=== PATIENT | female | born 1965 | race African-American/Black ===

== ENCOUNTER 2016-08-01 09:38 | Emergency (ER) | payer MEDICARE, OTHER ==
[~2016-08-01] VITALS: Ht 154.9 cm; Wt 140.0 kg
[~2016-08-01 09:38] MED LIST: 1-ME1LIQ PO; ATEN-102 PO; BACT800T5 PO; CLIN1CAP5 PO; DYAZ PO; GABA100C4 PO; GLUCOMTESTSTRIPS XX; GLUCTAB PO; GLUCTES12; LEVO.025 PO; METF500T PO; PERC5TAB12 PO; RANI150 PO; RANI150T PO; TRAM50TA PO
[2016-08-01 09:47] VITALS: BP 166/81; PULSE 88; RESP 16; TEMP 98.4; O2SAT 94
[2016-08-01] MEDS ORDERED: METF500T PO (09:55)
[2016-08-01] MEDS ORDERED: AMLO10TA2 PO (09:55)
[2016-08-01] MEDS ORDERED: TRAM50TA PO (09:55)
[2016-08-01] MEDS ORDERED: ATEN50TA PO (09:55)
[2016-08-01] MEDS ORDERED: GABA100C4 PO (09:55)
[2016-08-01] MEDS ORDERED: SODIUM CHLOR 0.9% 1000 ML INJ 1,000 ML IV SCH (09:59)
[2016-08-01] MEDS ORDERED: ONDANSETRON HCL 4 MG/2 ML VIAL IVP ONE (10:00)
[2016-08-01] MEDS ORDERED: SODIUM CHLORIDE 0.9% FLUSH 5 ML FLUSH IVF PRN (10:00)
[2016-08-01] MEDS ORDERED: MORPHINE SULFATE 4 MG/ML INJ IV PUSH ONE (10:00)
--- NOTE | 2016-08-01 10:08 | PD ---
HPI Chief Complaint: Hypertension Time Seen by Provider: 09:42 Travel History International Travel<30 days: No Contact w/Intl Traveler<30days: No Traveled to known affect area: No History of Present Illness HPI The patient is a 50-year-old [place] female who presents to the emergency department via EMS for "not feeling well". The patient has a one- week history of nausea, vomiting, and diarrhea. The patient describes the diarrhea as loose, watery, multiple times throughout the day. She also complains of some lower abdominal pain, right greater than the left over the last several days which is intermittent. The patient has been able to tolerate oral intake intermittently, but continues to complain of nausea. She also complains of mild dizziness with standing upright. The patient called EMS and they noted her blood pressure was elevated. The patient states her primary physician is Dr. Lo of the [address] [place] [address]. The patient does note a previous history of hysterectomy and tumor removal and was seen Dr. Conde. She has an appointment with another oncologist in the future, however, cannot recall the name. The patient denies any fever, but has had some intermittent chills and sweats. PFSH Past Medical History Arthritis: Yes Asthma: No Autoimmune Disease: Yes (LUPUS) Blood Disorders: No Heart Rhythm Problems: No Cancer: No Cardiac Catheterization: No Cardiovascular Problems: Yes (CHF) High Cholesterol: No Chemotherapy: No Chest Pain: No Congestive Heart Failure: Yes COPD: No Diabetes: Yes Patient Takes Glucophage: No Diminished Hearing: No Endocrine: No Gastrointestinal Disorders: Yes GERD: Yes Genitourinary: No Hepatitis: No Hiatal Hernia: No Hypertension: Yes Immune Disorder: No Kidney Stones: No Musculoskeletal: Yes ("LOWER BACK DISCS DETERIORATED") Neurologic: No Psychiatric: No Respiratory: Yes Myocardial Infarction: No Radiation Therapy: No Renal Failure: No Sickle Cell Disease: No Sleep Apnea: No Thyroid Disease: Yes (HYPOTHYDRIOD) Ulcer: Yes ?: Not Menopausal: Yes : 0 Para: 0 Miscarriage: 0 : 0 Past Surgical History Abdominal Surgery: Yes (REMOVAL OF TUMOR IN THE STOMACH) AICD: No Appendectomy: Yes Arteriovenous Shunt: No Cardiac Surgery: No Ear Surgery: No Endocrine Surgery: No Eye Surgery: No Genitourinary Surgery: No Gynecologic Surgery: No Hysterectomy: Yes Insulin Pump: No Joint Replacement: No Oral Surgery: No Pacemaker: No Thoracic Surgery: No Other Surgery: Yes Social History Alcohol Use: No Tobacco Use: Yes (<1/2 ppd) Substance Use: No Allergies-Medications (Allergen,Severity, Reaction): Coded Allergies: Aspirin (Verified Allergy, Severe, H/O LOW PLATELET COUNT, 08/01/16) Nonsteroidal Anti-Inflammatory Agts (Verified Allergy, Severe, 08/01/16) low plt. 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) Lisinopril (Verified Adverse Reaction, Unknown, Swelling, 08/01/16) ANGIOEDEMA Reported Meds & Prescriptions Reported Meds & Active Scripts Active Metformin (Metformin HCl) 500 Mg Tab 500 Mg PO BIDPC With meals Ranitidine (Ranitidine HCl) 150 Mg Tab 150 Mg PO DAILY Glucocom Test Strips (Blood Glucose Test Strips) 1 [place] 1 Box .ROUTE BID Check Blood sugar twice daily Review of Systems Except as stated in HPI: all other systems reviewed are Neg General / Constitutional: Positive: Fever (subjective), Chills HENT: Positive: Lightheadedness Cardiovascular: No: Chest Pain or Discomfort Respiratory: No: Shortness of Breath Gastrointestinal: Positive: Nausea, Vomiting, Diarrhea, Abdominal Pain Genitourinary: No: Dysuria, Decreased Urinary Output Musculoskeletal: Positive: Weakness Neurologic: Positive: Dizziness Physical Exam Narrative GENERAL: Awake, alert, 50-year-old female who appears her stated age and is in no acute respiratory distress. SKIN: Warm and dry. HEAD: Atraumatic. Normocephalic. EYES: Mild injection bilateral. ENT: No nasal bleeding or discharge. Mucous membranes pink and moist. NECK: Trachea midline. No JVD. CARDIOVASCULAR: Regular rate and rhythm. No murmur appreciated. RESPIRATORY: No accessory muscle use. Clear to auscultation. Breath sounds equal bilaterally. GASTROINTESTINAL: Abdomen soft, obese, tender to palpation right lower quadrant. No rebound tenderness. MUSCULOSKELETAL: No obvious deformities. No clubbing. No cyanosis. No edema. NEUROLOGICAL: Awake and alert. No obvious cranial nerve deficits. Motor grossly within normal limits. Normal speech. PSYCHIATRIC: Appropriate mood and affect; insight and judgment normal. Data Data Last Documented VS Vital Signs Date Time Temp Pulse Resp B/P Pulse Ox O2 Delivery O2 Flow Rate FiO2 08/01/16 10:29 96 Room Air 08/01/16 09:47 98.4 88 16 166/81 Orders Complete Blood Count With Diff (08/01/16 09:59) Comprehensive Metabolic Panel (08/01/16 09:59) Lipase (08/01/16 09:59) Lactic Acid (08/01/16 09:59) Urinalysis - C+S If Indicated (08/01/16 09:59) Ct Abd/Pel W/O Iv Contrast (08/01/16 09:59) Iv Access Insert/Monitor (08/01/16 09:59) Ecg Monitoring (08/01/16 09:59) Oximetry (08/01/16 09:59) Morphine Inj (Morphine Inj) (08/01/16 10:00) Ondansetron Inj (Zofran Inj) (08/01/16 10:00) Sodium Chlor 0.9% 1000 Ml Inj (Ns 1000 M (08/01/16 09:59) Sodium Chloride 0.9% Flush (Ns Flush) (08/01/16 10:00) Acetaminophen (Tylenol) (08/01/16 11:30) Labs Laboratory Tests Test 08/01/16 08/01/16 10:21 10:25 Urine Color LIGHT-YELLOW Urine Turbidity CLEAR Urine pH 5.5 Urine Specific [place] 1.008 Urine Protein NEG mg/dL Urine Glucose (UA) NEG mg/dL Urine Ketones NEG mg/dL Urine Occult Blood NEG Urine Nitrite NEG Urine Bilirubin NEG Urine Urobilinogen LESS THAN 2.0 MG/DL Urine Leukocyte Esterase NEG Urine RBC LESS THAN 1 /hpf Urine WBC LESS THAN 1 /hpf Urine Squamous Epithelial 1 /hpf Cells Microscopic Urinalysis Comment CULT NOT INDICATED White Blood Count 9.5 TH/MM3 Red Blood Count 4.33 MIL/MM3 Hemoglobin 12.6 GM/DL Hematocrit 38.8 % Mean Corpuscular Volume 89.6 FL Mean Corpuscular Hemoglobin 29.0 PG Mean Corpuscular Hemoglobin 32.4 % Concent Red Cell Distribution Width 15.9 % Platelet Count 86 TH/MM3 Mean Platelet Volume 12.6 FL Neutrophils (%) (Auto) 56.4 % Lymphocytes (%) (Auto) 35.2 % Monocytes (%) (Auto) 6.6 % Eosinophils (%) (Auto) 0.8 % Basophils (%) (Auto) 1.0 % Neutrophils # (Auto) 5.3 TH/MM3 Lymphocytes # (Auto) 3.3 TH/MM3 Monocytes # (Auto) 0.6 TH/MM3 Eosinophils # (Auto) 0.1 TH/MM3 Basophils # (Auto) 0.1 TH/MM3 CBC Comment AUTO DIFF Differential Comment AUTO DIFF CONFIRMED Platelet Estimate LOW Platelet Morphology Comment ENLARGED Sodium Level 144 MEQ/L Potassium Level 3.8 MEQ/L Chloride Level 107 MEQ/L Carbon Dioxide Level 29.4 MEQ/L Anion Gap 8 MEQ/L Blood Urea Nitrogen 9 MG/DL Creatinine 0.51 MG/DL Estimat Glomerular Filtration 153 ML/MIN Rate Random Glucose 83 MG/DL Lactic Acid Level 0.8 mmol/L Calcium Level 9.2 MG/DL Total Bilirubin 0.3 MG/DL Aspartate Amino Transf 15 U/L (AST/SGOT) Alanine Aminotransferase 26 U/L (ALT/SGPT) Alkaline Phosphatase 79 U/L Total Protein 8.0 GM/DL Albumin 3.8 GM/DL Lipase 138 U/L [facility] Medical Decision Making Medical Screen Exam Complete: Yes Emergency Medical Condition: Yes Medical Record Reviewed: Yes Interpretation(s) Laboratory Tests Test 08/01/16 08/01/16 10:21 10:25 Urine Color LIGHT-YELLOW Urine Turbidity CLEAR Urine pH 5.5 Urine Specific [place] 1.008 Urine Protein NEG mg/dL Urine Glucose (UA) NEG mg/dL Urine Ketones NEG mg/dL Urine Occult Blood NEG Urine Nitrite NEG Urine Bilirubin NEG Urine Urobilinogen LESS THAN 2.0 MG/DL Urine Leukocyte Esterase NEG Urine RBC LESS THAN 1 /hpf Urine WBC LESS THAN 1 /hpf Urine Squamous Epithelial 1 /hpf Cells Microscopic Urinalysis Comment CULT NOT INDICATED White Blood Count 9.5 TH/MM3 Red Blood Count 4.33 MIL/MM3 Hemoglobin 12.6 GM/DL Hematocrit 38.8 % Mean Corpuscular Volume 89.6 FL Mean Corpuscular Hemoglobin 29.0 PG Mean Corpuscular Hemoglobin 32.4 % Concent Red Cell Distribution Width 15.9 % Platelet Count 86 TH/MM3 Mean Platelet Volume 12.6 FL Neutrophils (%) (Auto) 56.4 % Lymphocytes (%) (Auto) 35.2 % Monocytes (%) (Auto) 6.6 % Eosinophils (%) (Auto) 0.8 % Basophils (%) (Auto) 1.0 % Neutrophils # (Auto) 5.3 TH/MM3 Lymphocytes # (Auto) 3.3 TH/MM3 Monocytes # (Auto) 0.6 TH/MM3 Eosinophils # (Auto) 0.1 TH/MM3 Basophils # (Auto) 0.1 TH/MM3 CBC Comment AUTO DIFF Sodium Level 144 MEQ/L Potassium Level 3.8 MEQ/L Chloride Level 107 MEQ/L Carbon Dioxide Level 29.4 MEQ/L Anion Gap 8 MEQ/L Blood Urea Nitrogen 9 MG/DL Creatinine 0.51 MG/DL Estimat Glomerular Filtration 153 ML/MIN Rate Random Glucose 83 MG/DL Lactic Acid Level 0.8 mmol/L Calcium Level 9.2 MG/DL Total Bilirubin 0.3 MG/DL Aspartate Amino Transf 15 U/L (AST/SGOT) Alanine Aminotransferase 26 U/L (ALT/SGPT) Alkaline Phosphatase 79 U/L Total Protein 8.0 GM/DL Albumin 3.8 GM/DL Lipase 138 U/L CT of the abdomen and pelvis reveals no definite acute abnormality seen. Scattered colonic diverticula in the sigmoid region without inflammatory change. Differential Diagnosis Differential diagnosis includes gastroenteritis, enteritis, colitis, diverticulitis, clostridium difficile, viral syndrome, influenza, dehydration. Narrative Course IV was established, labs are drawn and sent, and the patient was placed on cardiac telemetry monitoring and continuous pulse oximetry monitoring. The patient was administered morphine, Zofran, and IV fluids. CT of the abdomen and pelvis was ordered. The patient's labs are unremarkable. Lactic acid is normal. The patient refused morphine, is allergic to nonsteroidal anti- inflammatories and aspirin, therefore, was administered Tylenol for her pain. CT of the abdomen and pelvis is unremarkable except for scattered colonic diverticula and nonobstructive 4 mm right renal stone. The patient will be discharged home on antiemetics and is advised [id number] antidiarrheals as needed. The patient will be provided a copy of her labs and steady discharge. She is advised to follow-up with her primary physician. Diagnosis Primary Impression: Gastroenteritis Patient Instructions: General Instructions Additional Instructions: Please provide a patient a copy of her CT results and lab results at discharge. Medications as directed. [id number] Imodium as needed. Follow-up with her primary physician. Return if symptoms worsen or progress. Med/Other Pt SpecificInfo: Prescription(s) given Scripts Ondansetron Odt (Zofran Odt)4 Mg Tab4 Mg SL Q6HR PRN (Nausea/Vomiting) #10 TAB Ref 0 Prov:Tonio Simon MD 08/01/16 Hydrocodone-Acetaminophen (Camp)5-325 mg Tab1 Tab PO Q6H PRN (PAIN) #15 TAB Ref 0 Prov:Tonio Simon MD 08/01/16 Disposition: 01 DISCHARGE HOME Condition: Stable Tonio Simon MD Aug 01, 2016 10:07
[2016-08-01 10:29] VITALS: O2SAT 96
[2016-08-01 10:47] LABS: BLOOD, URINE NEG (NEG); GLUCOSE,URINE NEG (NEG); KETONE, URINE NEG (NEG); NITRITE,URINE NEG (NEG); PH, URINE 5.5 (5.0-8.5); SQUAMOUS EPITHELIAL CELL URINE 1 /hpf (0-5); URINE COLOR LIGHT-YELLOW (YELLW/STRAW)
[2016-08-01 10:48] LABS: COMMENT (UR) CULT NOT INDICATED; CULTURE IF INDICATED CULT NOT INDICATED
[2016-08-01 10:50] LABS: AUTOMATED NEUTROPHIL # 5.3 TH/MM3 (1.8-7.7); BASOPHIL # 0.1 TH/MM3 (0-0.2); EOSINOPHIL # 0.1 TH/MM3 (0-0.4); EOSINOPHIL % 0.8 % (0.0-4.0); HEMATOCRIT 38.8 % (35.0-46.0); LYMPH % 35.2 % (9.0-44.0); LYMPHOCYTE # 3.3 TH/MM3 (1.0-4.8); MEAN CELL VOLUME 89.6 FL (80.0-100.0); MEAN CORPUSCULAR HGB CONC 32.4 % (32.0-36.0); MONO % 6.6 % (0.0-8.0); NEUT % 56.4 % (16.0-70.0); PLATELET COUNT 86 TH/MM3 (150-450); RED BLOOD COUNT 4.33 MIL/MM3 (4.00-5.30); RED CELL DISTRIBUTION WIDTH 15.9 % (11.6-17.2); WHITE BLOOD COUNT 9.5 TH/MM3 (4.0-11.0)
[2016-08-01 11:03] LABS: ANION GAP 8 MEQ/L (5-15); AST (GOT) 15 U/L (15-37); BICARBONATE 29.4 MEQ/L (21.0-32.0); BLOOD UREA NITROGEN 9 MG/DL (7-18); CHLORIDE 107 MEQ/L (98-107); GLOMERULAR FILTRATION RATE 153 ML/MIN (>89); POTASSIUM 3.8 MEQ/L (3.5-5.1); SODIUM (NA) 144 MEQ/L (136-145)
[2016-08-01 11:06] LABS: ALKALINE PHOSPHATASE 79 U/L (45-117); ALT (GPT) 26 U/L (10-53); TOTAL BILIRUBIN ADULT 0.3 MG/DL (0.2-1.0)
[2016-08-01 11:12] LABS: HEMO FLAGS AUTO DIFF
[2016-08-01 11:15] VITALS: BP 143/90; PULSE 84; RESP 16; O2SAT 96
[2016-08-01] MEDS ORDERED: ACETAMINOPHEN 325 MG TAB PO ONE (11:30)
--- NOTE | 2016-08-01 11:51 | RADRPT ---
EXAM DATE/TIME: 08/01/2016 11:02 [facility] COMPARISON: No previous studies available for comparison. INDICATIONS : Lower abdominal pain ORAL CONTRAST: No oral contrast ingested. RADIATION DOSE: 27.16 CTDIvol (mGy) MEDICAL HISTORY : Cardiovascular disease. Hypertension. Lupus. SURGICAL HISTORY : Hysterectomy. Appendectomy. ENCOUNTER: Initial ACUITY: 1 day PAIN SCALE: 5/10 LOCATION: lower quadrant TECHNIQUE: Volumetric scanning of the abdomen and pelvis was performed. Using automated exposure control and ad justment of the mA and/or kV according to patient size, radiation dose was kept as low as reasonably achievable to obtain optimal diagnostic quality images. FINDINGS: The liver appears prominent. No focal hepatic lesions are seen. The spleen, pancreas and adrenal gl ands are normal. There is a 4 mm non-obstructing right renal stone. No hydronephrosis is seen on either side . There is some scattered colonic diverticula in the sigmoid region without significant inflammatory change. Si gnificantly dilated bowel is not seen. The patient appears to be status post hysterectomy. There is a focal are a of increased density seen at the superior aspect of the vagina measuring 0.8 cm likely related to a calcification in this region. Significant areas of adenopathy are not appreciated. The abdominal wall appears grossly intact. The patient has post-surgical change in the midline in the superficial anterior abdominal wall fat. The lung bases a re clear. There is spurring and degenerative changes seen in the lumbar spine. CONCLUSION: 1. No definite acute abnormality seen. 2. Scattered colonic diverticula in the sigmoid region without inflammatory change. 3. Non-obstructing 4 mm right renal stone. Yash Grey MD on August 01, 2016 at 11:30 Board Certified Radiologist. This report was verified electronically.
[2016-08-01 11:56] LABS: PLATELET ESTIMATE SMEAR LOW (NORMAL); PLATELET MORPHOLOGY ENLARGED (NORMAL); SCAN/DIFF AUTO DIFF CONFIRMED
[2016-08-01] MEDS ORDERED: NORC5TAB PO (12:08)
[2016-08-01] MEDS ORDERED: ZOFR4TAB3 SL (12:08)
== END 2016-08-01 12:59 | disposition home or self-care (01) ==
LOC: NEPE 09:38
DX: K52.9 Noninfective gastroenteritis and colitis, unspecified (principal); M32.9 Systemic lupus erythematosus, unspecified; I50.9 Heart failure, unspecified; I10 Essential (primary) hypertension; E07.9 Disorder of thyroid, unspecified; F17.210 Nicotine dependence, cigarettes, uncomplicated
CPT/HCPCS: 74176; 80053; 81001; 83605; 83690; 85025; 96361; 96374; 99284; J2405; J7030

== ENCOUNTER 2016-08-24 07:43 | Day surgery (SDC) | payer MEDICARE, OTHER ==
[~2016-08-24] VITALS: Ht 154.9 cm; Wt 142.7 kg
[~2016-08-24 07:43] MED LIST changes: -1-ME1LIQ PO; +AMLO10TA2 PO; -ATEN-102 PO; +ATEN50TA PO; -BACT800T5 PO; -CLIN1CAP5 PO; -DYAZ PO; -GLUCOMTESTSTRIPS XX; -GLUCTAB PO; -LEVO.025 PO; +NORC5TAB PO; -PERC5TAB12 PO; -RANI150 PO; +ZOFR4TAB3 SL
[2016-08-24 08:01] VITALS: BP 169/98; PULSE 79; RESP 20; TEMP 98.4; O2SAT 95
[2016-08-24] MEDS ORDERED: [UNRECOGNIZED DRUG - CODE] PO (08:01)
[2016-08-24] MEDS ORDERED: PRED5TAB PO (08:01)
[2016-08-24 08:37] LABS: AUTOMATED NEUTROPHIL # 5.5 TH/MM3 (1.8-7.7); BASOPHIL # 0.1 TH/MM3 (0-0.2); EOSINOPHIL # 0.1 TH/MM3 (0-0.4); EOSINOPHIL % 1.3 % (0.0-4.0); HEMATOCRIT 39.3 % (35.0-46.0); LYMPH % 32.6 % (9.0-44.0); LYMPHOCYTE # 3.1 TH/MM3 (1.0-4.8); MEAN CELL VOLUME 89.6 FL (80.0-100.0); MEAN CORPUSCULAR HEMOGLOBIN 28.7 PG (27.0-34.0); MEAN CORPUSCULAR HGB CONC 32.1 % (32.0-36.0); NEUT % 58.1 % (16.0-70.0); PLATELET COUNT 76 TH/MM3 (150-450); RED BLOOD COUNT 4.39 MIL/MM3 (4.00-5.30); RED CELL DISTRIBUTION WIDTH 16.1 % (11.6-17.2); WHITE BLOOD COUNT 9.5 TH/MM3 (4.0-11.0)
[2016-08-24 08:40] LABS: HEMO FLAGS AUTO DIFF
[2016-08-24 08:45] LABS: APTT (PATIENT) 25.4 SEC (24.3-30.1); PROTHROMBIN TIME - PATIENT 11.4 SEC (9.8-11.6)
[2016-08-24] MEDS ORDERED: LIDOCAINE 1%/EPINEPHrine 1:100,000 SOLN 20 ML VIAL ONE (08:47)
[2016-08-24] MEDS ORDERED: SODIUM CHLOR 0.9% 1000 ML INJ 1,000 ML IV SCH (09:00)
[2016-08-24] MEDS ORDERED: MIDAZOLAM HCL 5 MG/5 ML VIAL ONE (09:02)
[2016-08-24] MEDS ORDERED: fentaNYL CITRATE 250 MCG/5 ML AMP ONE (09:02)
[2016-08-24 09:07] LABS: PLATELET ESTIMATE SMEAR LOW (NORMAL); PLATELET MORPHOLOGY ENLARGED (NORMAL); SCAN/DIFF AUTO DIFF CONFIRMED
[2016-08-24] MEDS ORDERED: BUPIVACAINE HCL PF 0.75% 10 ML VIAL ONE (09:38)
[2016-08-24 10:05] VITALS: BP 131/81; PULSE 75; RESP 18; TEMP 98; O2SAT 94
[2016-08-24 10:20] VITALS: BP 117/50; PULSE 75; RESP 18; O2SAT 98
--- NOTE | 2016-08-24 10:34 | RADRPT ---
EXAM DATE/TIME: 08/24/2016 09:29 [facility] COMPARISON: No previous studies available for comparison. INDICATIONS : Thrombocytopenia. SEDATION TIME: 30 minutes BIOPSY SITE: Right ilium MEDICATION(S): 1.) 3 mg midazolam (Versed) IV 2.) 150 mcg fentanyl (Sublimaze) IV DEVICE(S): 1.) 11 gauge Bone marrow biopsy needle MEDICAL HISTORY : Diabetes mellitus type 2. Hypertension. SURGICAL HISTORY : None. ENCOUNTER: Initial ACUITY: 1 day PAIN SCORE: 0/10 LOCATION: Right pelvis A total of one core specimen(s) were obtained and sent to the laboratory for pathologic evaluation. PROCEDURE: 1. CT guided bone marrow biopsy. 2. Conscious sedation with continuous EKG and oximetry monitoring. 3. EKG and oximetry remained stable throughout the procedure. Prior to the procedure informed consent was obtained. Any appropriate prior imaging studies were rev iewed. Using automated exposure control and adjustment of the mA and/or kV according to patient size , radiation dose was kept as low as reasonably achievable to obtain optimal diagnostic quality images . The site was prepped in a sterile fashion. Full sterile technique was used, including cap, mask, ber[place] rile gloves and gown and a large sterile sheet. Hand hygiene and 2% chlorhexidine and/or betadine/al cohol prep was utilized per protocol for cutaneous antisepsis. The skin and subcutaneous tissues wer e infiltrated with local anesthetic solution. With CT guidance the previously identified target was localized. Biopsy was performed using the presc ribed needle as above. Following biopsy marrow aspiration was performed with repeat puncture. Adequa te hemostasis was obtained with compression at the puncture site. Follow-up CT scan reveals no hemorrhage. Conscious sedation was performed with the prescribed dosages and duration as above in the presence of an independent trained radiology nurse to assist in the monitoring of the patient. EKG and oximetry remained stable throughout the procedure. The patient tolerated the procedure well and there were no complications. The patient was sent to Radiology Outpatient Unit in stable condition. CONCLUSION: 1. Uncomplicated CT guided bone marrow aspirate. 2. Uncomplicated CT guided bone marrow biopsy. Everardo Flores MD FACR on August 24, 2016 at 10:32 Board Certified Radiologist. This report was verified electronically.
[2016-08-24 10:50] VITALS: BP 137/71; PULSE 62; RESP 16; O2SAT 98
[2016-08-24 11:06] LABS: BONE MARROW PROCESSING COMPLETE; IRON STAIN DONE; JENNER GIEMSA STAIN DONE
[2016-08-24 11:20] VITALS: BP 144/75; PULSE 66; RESP 18; O2SAT 92
[2016-08-24 11:50] VITALS: BP 130/76; PULSE 68; RESP 18; O2SAT 93
[2016-08-24] MEDS ORDERED: ACETAMINOPHEN/HYDROcodone 325 MG/5 MG TAB PO ONE (12:00)
== END 2016-08-24 12:15 | disposition home or self-care (01) ==
LOC: HRAD 07:43 → HRIP 07:44 → HRAD 12:15
PROVIDERS: ATTEND Internal Medicine Hematology & Oncology
DX: D69.3 Immune thrombocytopenic purpura (principal); I10 Essential (primary) hypertension; E11.9 Type 2 diabetes mellitus without complications
CPT/HCPCS: 38221; 77012; 85025; 85097; 85610; 85730; 88305; 88311; 88313; 99152; C1830; G0364; J2250; J3010; J7030

== ENCOUNTER 2016-08-30 11:31 | Emergency (ER) | payer MEDICARE, OTHER ==
[~2016-08-30] VITALS: Ht 154.9 cm; Wt 140.0 kg
[~2016-08-30 11:31] MED LIST changes: +PRED5TAB PO; +[UNRECOGNIZED DRUG - CODE] PO
[2016-08-30 11:33] VITALS: BP 162/100; PULSE 90; RESP 24; TEMP 98.6; O2SAT 98
--- NOTE | 2016-08-30 11:48 | PD ---
Physical Exam Time Seen by Provider: 11:45 Narrative 50 yo female c/o tooth pain for a couple days. Denies fever, vomiting. Right lower gum swelling. Pain radiates to R ear. VSS Seen in triage, awaiting bed placement. Data Data Last Documented VS Vital Signs Date Time Temp Pulse Resp B/P Pulse Ox O2 Delivery O2 Flow Rate FiO2 08/30/16 11:33 98.6 90 24 162/100 98 Room Air MDM Supervised Visit with KYUNG: Ambreen Mejía Aug 30, 2016 11:48
--- NOTE | 2016-08-30 11:52 | PD ---
HPI . right lower gum cyst x 2 mts Chief Complaint: Oral / Dental Pain or Problem Time Seen by Provider: 11:52 Travel History International Travel<30 days: No Contact w/Intl Traveler<30days: No Traveled to known affect area: No History of Present Illness HPI 50-year-old female with history of hypertension, hyperlipidemia, diabetes and a two-month history of a right lower gum cyst status post biopsy with noncancerous results here with complaints of right sided ear pain and possible infection of the cyst. Patient tells me that she thinks she saw pus coming out of it this morning and thinks it is contributing to her right sided ear pain. Patient is in the process of trying to find a dentist who accepts Medicaid to have this cyst removed. She is somewhat at a standstill as she cannot find any providers locally to take her insurance. She is following with her primary care provider and was told to come to the emergency department for further evaluation. Her main issue is the right sided ear pain that she believes is stemming from the cyst. She denies any fever or chills or recent cold symptoms. She has no other complaints. PFSH Past Medical History Arthritis: Yes Asthma: No Autoimmune Disease: Yes (LUPUS) Blood Disorders: No Heart Rhythm Problems: No Cancer: No Cardiac Catheterization: No Cardiovascular Problems: Yes (htn) High Cholesterol: No Chemotherapy: No Chest Pain: No Congestive Heart Failure: Yes COPD: No Diabetes: Yes (metformin) Diminished Hearing: No Endocrine: No Gastrointestinal Disorders: Yes GERD: Yes Genitourinary: No Hepatitis: No Hiatal Hernia: No Hypertension: Yes Immune Disorder: No Kidney Stones: No Musculoskeletal: Yes ("LOWER BACK DISCS DETERIORATED") Neurologic: No Psychiatric: No Respiratory: Yes Immunizations Current: No Myocardial Infarction: No Radiation Therapy: No Renal Failure: No Sickle Cell Disease: No Sleep Apnea: No Thyroid Disease: Yes (HYPOTHYDRIOD) Ulcer: Yes Menopausal: Yes : 0 Para: 0 Miscarriage: 0 : 0 Past Surgical History Abdominal Surgery: Yes (REMOVAL OF TUMOR IN THE STOMACH, appe) AICD: No Appendectomy: Yes Arteriovenous Shunt: No Cardiac Surgery: No Ear Surgery: No Endocrine Surgery: No Eye Surgery: No Genitourinary Surgery: No Gynecologic Surgery: Yes (hysterectomy) Hysterectomy: Yes Insulin Pump: No Joint Replacement: No Oral Surgery: No Pacemaker: No Thoracic Surgery: No Other Surgery: Yes Social History Alcohol Use: No Tobacco Use: Yes (<1/2 ppd) Substance Use: No Allergies-Medications (Allergen,Severity, Reaction): Coded Allergies: Aspirin (Verified Allergy, Severe, H/O LOW PLATELET COUNT, 08/30/16) Nonsteroidal Anti-Inflammatory Agts (Verified Allergy, Severe, 08/30/16) low plt. 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 Zofran Odt (Ondansetron Odt) 4 Mg Tab 4 Mg SL Q6HR PRN [place] (Hydrocodone-Acetaminophen) 5-325 mg Tab 1 Tab PO Q6H PRN Ranitidine (Ranitidine HCl) 150 Mg Tab 150 Mg PO DAILY Glucocom Test Strips (Blood Glucose Test Strips) 1 [place] 1 Box .ROUTE BID Check Blood sugar twice daily Reported Promacta (Eltrombopag) 75 Mg Tab 75 Mg PO DAILY Prednisone 5 Mg Tab 5 Mg PO TID Tramadol (Tramadol HCl) 50 Mg Tab 50 Mg PO Q6H PRN Amlodipine (Amlodipine Besylate) 10 Mg Tab 10 Mg PO HS Metformin (Metformin HCl) 500 Mg Tab 500 Mg PO DAILY With a meal Gabapentin 100 Mg Cap 100 Mg PO HS Atenolol 50 Mg Tab 50 Mg PO DAILY Review of Systems Except as stated in HPI: all other systems reviewed are Neg HENT: Positive: Earache (right), Other (right gum cyst) Physical Exam Narrative GENERAL: AAO x 3, no acute distress, Well-nourished, well-developed patient. SKIN: Warm and dry. No visible rashes or bruising. HEAD: Normocephalic and atraumatic. EYES: No scleral icterus. No injection or drainage. EOM intact, PERRLA ENT: No nasal drainage noted. Mucous membranes pink. Airway patent. Right TM bulging and erythematous, loss of internal structures. right lower gum near #27 , 1.5 cm cystic structure without any drainage or erythema. NECK: Supple, trachea midline. No JVD. no lymphadenopathy. CARDIOVASCULAR: Regular rate and rhythm without murmurs, gallops, or rubs. RESPIRATORY: Breath sounds equal bilaterally. No accessory muscle use. No rhonchi or rales. GASTROINTESTINAL: Abdomen soft, non-tender, nondistended. EXTREMITIES: No cyanosis or edema. BACK: Nontender without obvious deformity. No CVA tenderness. PSYCH: AAO x 3, normal affect. Data Data Last Documented VS Vital Signs Date Time Temp Pulse Resp B/P Pulse Ox O2 Delivery O2 Flow Rate FiO2 08/30/16 11:33 98.6 90 24 162/100 98 Room Air MDM Medical Decision Making Medical Screen Exam Complete: Yes Emergency Medical Condition: Yes Medical Record Reviewed: Yes Differential Diagnosis right OM, right OE, less likely infected cyst of the mouth, Narrative Course 50-year-old female with history of hypertension, hyperlipidemia, diabetes and a two-month history of a right lower gum cyst status post biopsy with noncancerous results here with complaints of right sided ear pain and possible infection of the cyst. Patient tells me that she thinks she saw pus coming out of it this morning and thinks it is contributing to her right sided ear pain. Patient is in the process of trying to find a dentist who accepts Medicaid to have this cyst removed. She is somewhat at a standstill as she cannot find any providers locally to take her insurance. She is following with her primary care provider and was told to come to the emergency department for further evaluation. Her main issue is the right sided ear pain that she believes is stemming from the cyst. She denies any fever or chills or recent cold symptoms. She has no other complaints. Patient seen and examined. I do not appreciate any type of infection near this cystic structure in her oral cavity. However I do see that she has what appears to be right otitis media. I discussed this with her. I will go ahead and treat her with Augmentin for otitis media, which will also cover oral infections. I advised her to try to reach out to her primary care provider for assistance in finding a dentist who can take her insurance. Patient verbalized understanding of instructions, questions were answered, and thanked me for their care. I advised them if their condition worsens, please return to the nearest emergency room for further care. Diagnosis Primary Impression: ROM (right otitis media) Qualified Code: H66.91 - Right otitis media, unspecified chronicity, unspecified otitis media type Patient Instructions: General Instructions, Otitis Media (ED) Additional Instructions: Please return to emergency department if your symptoms return or worsen. Follow up with your primary care provider. Take medications as prescribed. Use ibuprofen and Tylenol as needed for pain. Try to get a dentist to remove the cyst as soon as possible. Med/Other Pt SpecificInfo: Prescription(s) given Scripts Amoxicillin-Clavulanate (Augmentin)875-125 mg Aic226 Mg PO BID #20 TAB not for use in CrCl <30 ml/min. Prov:Enoch Romero MD 08/30/16 Disposition: 01 DISCHARGE HOME Condition: Stable Annemarie Mitchell Aug 30, 2016 11:52
[2016-08-30] MEDS ORDERED: AUGM875T PO (11:58)
== END 2016-08-30 12:30 | disposition home or self-care (01) ==
LOC: NEPK 11:31
DX: H66.91 Otitis media, unspecified, right ear (principal); K09.8 Other cysts of oral region, not elsewhere classified; E11.9 Type 2 diabetes mellitus without complications; I10 Essential (primary) hypertension; E03.9 Hypothyroidism, unspecified; Z72.0 Tobacco use; Z98.890 Other specified postprocedural states; Z79.84 Long term (current) use of oral hypoglycemic drugs; Z87.39 Personal history of other diseases of the musculoskeletal system and connective tissue; Z86.2 Personal history of diseases of the blood and blood-forming organs and certain disorders involving the immune mechanism; Z86.79 Personal history of other diseases of the circulatory system; Z87.19 Personal history of other diseases of the digestive system; Z87.09 Personal history of other diseases of the respiratory system; D69.3 Immune thrombocytopenic purpura
CPT/HCPCS: 99282

== ENCOUNTER 2017-02-15 15:56 | Emergency (ER) | payer MEDICARE, OTHER ==
[~2017-02-15] VITALS: Ht 154.9 cm; Wt 146.0 kg
[~2017-02-15 15:56] MED LIST changes: +AUGM875T PO; -GABA100C4 PO; -NORC5TAB PO
[2017-02-15 16:01] VITALS: BP 170/79; PULSE 81; RESP 16; TEMP 99.2; O2SAT 95
[2017-02-15] MEDS ORDERED: PERI0.126 SWISH-SPIT (16:26)
[2017-02-15] MEDS ORDERED: PENI500T PO (16:26)
--- NOTE | 2017-02-15 16:30 | PD ---
HPI Chief Complaint: Oral / Dental Pain or Problem Time Seen by Provider: 16:22 Travel History International Travel<30 days: No Contact w/Intl Traveler<30days: No Traveled to known affect area: No History of Present Illness HPI This is a 50-year-old female who presents for evaluation of a gingival lesion. She has had for over one year. She reports over the past week the lesion has become larger and more painful and for this reason she has presented here for evaluation. She reports that she has noted some pus emanating from the lesion. She reports that she has seen her primary care physician in the past but this issue, she had a biopsy of the lesion performed on December 07, 2015 which revealed that it was a noncancerous lesion. She was referred to an oral surgeon to have it removed however because of her history of thrombocytopenia this has been delayed. She has no other complaints at this time. PFSH Past Medical History Arthritis: Yes Asthma: No Autoimmune Disease: Yes (Lupus ) Blood Disorders: No Heart Rhythm Problems: No Cancer: No Cardiac Catheterization: No Cardiovascular Problems: Yes (CHF) High Cholesterol: No Chemotherapy: No Chest Pain: No Congestive Heart Failure: Yes COPD: No Diabetes: Yes (metformin) Patient Takes Glucophage: No Diminished Hearing: No Endocrine: No Gastrointestinal Disorders: Yes GERD: Yes Genitourinary: No Hepatitis: No Hiatal Hernia: No Hypertension: Yes Immune Disorder: No Kidney Stones: No Musculoskeletal: Yes ("LOWER BACK DISCS DETERIORATED") Neurologic: No Psychiatric: No Respiratory: Yes Immunizations Current: No Myocardial Infarction: No Radiation Therapy: No Renal Failure: No Sickle Cell Disease: No Sleep Apnea: No Thyroid Disease: Yes (HYPOTHYDRIOD) Ulcer: Yes ?: Not Menopausal: Yes : 0 Para: 0 Miscarriage: 0 : 0 Past Surgical History Abdominal Surgery: Yes (REMOVAL OF TUMOR IN THE STOMACH, appe) AICD: No Appendectomy: Yes Arteriovenous Shunt: No Cardiac Surgery: No Ear Surgery: No Endocrine Surgery: No Eye Surgery: No Genitourinary Surgery: No Gynecologic Surgery: Yes (hysterectomy) Hysterectomy: Yes Insulin Pump: No Joint Replacement: No Oral Surgery: No Pacemaker: No Thoracic Surgery: No Other Surgery: Yes Social History Alcohol Use: No Tobacco Use: Yes (1 pack/wk) Substance Use: No Allergies-Medications (Allergen,Severity, Reaction): Coded Allergies: aspirin (Unverified Allergy, Severe, H/O LOW PLATELET COUNT, 02/15/17) diclofenac (Unverified Allergy, Severe, 02/15/17) low plt. etodolac (Unverified Allergy, Severe, 02/15/17) low plt. flurbiprofen (Unverified Allergy, Severe, 02/15/17) low plt. ibuprofen (Unverified Allergy, Severe, 02/15/17) low plt. indomethacin (Unverified Allergy, Severe, 02/15/17) low plt. ketoprofen (Unverified Allergy, Severe, 02/15/17) low plt. ketorolac (Unverified Allergy, Severe, 02/15/17) low plt. naproxen (Unverified Allergy, Severe, 02/15/17) low plt. oxaprozin (Unverified Allergy, Severe, 02/15/17) low plt. 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) lisinopril (Unverified Adverse Reaction, Unknown, Swelling, 02/15/17) ANGIOEDEMA Reported Meds & Prescriptions Reported Meds & Active Scripts Active Peridex Liq (Chlorhexidine Gluconate (Mouth) Liq) 0.12% Soln 15 Ml SWISH-SPIT BID Penicillin V Potassium 500 Mg Tab 500 Mg PO Q8H 10 Days Ranitidine (Ranitidine HCl) 150 Mg Tab 150 Mg PO DAILY Glucocom Test Strips (Blood Glucose Test Strips) 1 [place] 1 Box .ROUTE BID Check Blood sugar twice daily Reported Promacta (Eltrombopag) 75 Mg Tab 75 Mg PO DAILY Prednisone 5 Mg Tab 5 Mg PO TID Amlodipine (Amlodipine Besylate) 10 Mg Tab 10 Mg PO HS Metformin (Metformin HCl) 500 Mg Tab 500 Mg PO DAILY With a meal Atenolol 50 Mg Tab 50 Mg PO DAILY Review of Systems Except as stated in HPI: all other systems reviewed are Neg Physical Exam Narrative GENERAL: Well-developed well-nourished female in no acute distress SKIN: Warm and dry. HEAD: Atraumatic. Normocephalic. EYES: Pupils equal and round. No scleral icterus. No injection or drainage. ENT: No nasal bleeding or discharge. Mucous membranes pink and moist. There is a 2 cm gingival lesion in the right mandibular gum line. Mild tender. No drainage noted. Normal dentition. NECK: Trachea midline. No JVD. Data Data Last Documented VS Vital Signs Date Time Temp Pulse Resp B/P (MAP) Pulse Ox O2 Delivery O2 Flow Rate FiO2 02/15/17 16:01 99.2 81 16 170/79 (109) 95 MDM Medical Decision Making Medical Screen Exam Complete: Yes Emergency Medical Condition: Yes Medical Record Reviewed: Yes Differential Diagnosis Infected gingival lesion, abscess, oral malignancy Narrative Course This is a 51-year-old female with a chronic growth on her right mandibular gum line, negative biopsy in 2016, presents with 1 week of pain and increased swelling in the lesion, likely the patient has an infection. She'll be discharged with a short course of. Accident penicillin. Recommend follow-up with her oral surgeon for definitive removal of this lesion. Diagnosis Primary Impression: Lesion of gingiva Additional Instructions: Follow-up with your oral surgeon as scheduled. Medication as prescribed. Warm salt water gargle several times a day. Return for any emergent medical conditions. Med/Other Pt SpecificInfo: Prescription(s) given Scripts Chlorhexidine Gluconate (Mouth) Liq (Peridex Liq) 0.12% Soln 15 ML SWISH-SPIT BID, #473 ML 0 Refills Prov: Shena Robert DO 02/15/17 Penicillin V Potassium (Penicillin V Potassium) 500 Mg Tab 500 MG PO Q8H for Infection for 10 Days, #30 TAB 0 Refills Prov: Shena Robert DO 02/15/17 Disposition: 01 DISCHARGE HOME Condition: Stable Sonny Joe Feb 15, 2017 16:30
== END 2017-02-15 16:40 | disposition home or self-care (01) ==
LOC: PHEFT 15:56
DX: K13.70 Unspecified lesions of oral mucosa (principal); I11.0 Hypertensive heart disease with heart failure; I50.9 Heart failure, unspecified; E11.9 Type 2 diabetes mellitus without complications; M32.9 Systemic lupus erythematosus, unspecified; F17.210 Nicotine dependence, cigarettes, uncomplicated
CPT/HCPCS: 99284

== ENCOUNTER 2017-02-28 22:41 | Observation (INO) | payer MEDICARE, OTHER ==
[~2017-02-28] VITALS: Ht 157.5 cm; Wt 147.3 kg
[~2017-02-28 22:41] MED LIST changes: -AUGM875T PO; +PENI500T PO; +PERI0.126 SWISH-SPIT; -TRAM50TA PO; -ZOFR4TAB3 SL
[2017-02-28 22:44] VITALS: BP 178/110; PULSE 162; RESP 22; TEMP 98.7; O2SAT 94
[2017-02-28 23:12] VITALS: BP 67/34; PULSE 95; RESP 20; O2SAT 88
[2017-02-28] MEDS ORDERED: SODIUM CHLOR 0.9% 1000 ML INJ 1,000 ML IV SCH (23:12)
[2017-02-28] MEDS ORDERED: SODIUM CHLORIDE 0.9% FLUSH 10 ML FLUSH IV FLUSH PRN (23:15)
[2017-02-28] MEDS ORDERED: methylPREDNISolone SOD SUCC 125 MG/2 ML VIAL IV PUSH ONE (23:15)
[2017-02-28] MEDS ORDERED: EPINEPHrine HCL (1:1000) 1 MG/ML VIAL IM ONE (23:15)
[2017-02-28] MEDS ORDERED: diphenhydrAMINE HCL 50 MG/ML VIAL IVP ONE (23:15)
[2017-02-28 23:24] VITALS: BP 80/48; PULSE 96; RESP 20; O2SAT 95
[2017-02-28 23:29] VITALS: RESP 18; O2SAT 98
[2017-02-28 23:36] VITALS: BP 105/50; PULSE 88; RESP 18; O2SAT 98
[2017-02-28] MEDS ORDERED: SODIUM CHLOR 0.9% 1000 ML INJ 1,000 ML IV ONE (23:45)
--- NOTE | 2017-02-28 23:58 | RADRPT ---
EXAM DATE/TIME: 02/28/2017 23:42 [facility] COMPARISON: CHEST SINGLE AP, December 27, 2014, 11:54. INDICATIONS : Shortness of breath MEDICAL HISTORY : Diabetes mellitus type II. SURGICAL HISTORY : None. ENCOUNTER: Initial ACUITY: 1 day PAIN SCORE: 7/10 LOCATION: Bilateral chest FINDINGS: A single view of the chest demonstrates cardiomegaly. No focal consolidation or effusion. No pneumoth orax. CONCLUSION: 1. Cardiomegaly without focal consolidation or significant effusion. Ankit Dominguez MD on February 28, 2017 at 23:56 Board Certified Radiologist. This report was verified electronically.
--- NOTE | 2017-02-28 23:58 | PD ---
HPI Chief Complaint: Allergic/Adverse Reaction Time Seen by Provider: 23:11 Travel History International Travel<30 days: No Contact w/Intl Traveler<30days: No History of Present Illness HPI 51yo F with PMH of DM, HTN, allergic reaction presents to the ED with c/o sob and generalized itching 10-15 min after taking her penicillin. States she also felt her lip swollen. Denies any chest pain, throat swelling or tongue swelling. Had some nausea. Denies any vomiting, abdominal pain. Pt was hypoxic and required up to 6 L of NC initially to saturate in the low 90s. She was also hypotensive at 71/43. Pt given epinephrine, methylprednisolone and diphenhydramine. States she has had angioedema from lisinopril before. Had taken a few days of penicillin before but never had this. PFSH Past Medical History Arthritis: Yes Asthma: No Autoimmune Disease: Yes (Lupus ) Blood Disorders: No Heart Rhythm Problems: No Cancer: No Cardiac Catheterization: No Cardiovascular Problems: Yes (CHF) High Cholesterol: No Chemotherapy: No Chest Pain: No Congestive Heart Failure: Yes COPD: No Diabetes: Yes (metformin) Patient Takes Glucophage: No Diminished Hearing: No Endocrine: No Gastrointestinal Disorders: Yes GERD: Yes Genitourinary: No Hepatitis: No Hiatal Hernia: No Hypertension: Yes Immune Disorder: No Kidney Stones: No Musculoskeletal: Yes ("LOWER BACK DISCS DETERIORATED") Neurologic: No Psychiatric: No Respiratory: Yes Immunizations Current: No Myocardial Infarction: No Radiation Therapy: No Renal Failure: No Sickle Cell Disease: No Sleep Apnea: No Thyroid Disease: Yes (HYPOTHYROID) Ulcer: Yes Tetanus Vaccination: > 5 Years Influenza Vaccination: No ?: Not Menopausal: Yes : 0 Para: 0 Miscarriage: 0 : 0 Past Surgical History Abdominal Surgery: Yes (REMOVAL OF TUMOR IN THE STOMACH, appe) AICD: No Appendectomy: Yes Arteriovenous Shunt: No Cardiac Surgery: No Ear Surgery: No Endocrine Surgery: No Eye Surgery: No Genitourinary Surgery: No Gynecologic Surgery: Yes (hysterectomy) Hysterectomy: Yes Insulin Pump: No Joint Replacement: No Oral Surgery: No Pacemaker: No Thoracic Surgery: No Other Surgery: Yes Social History Alcohol Use: No Tobacco Use: Yes (1 pack/wk) Substance Use: No Allergies-Medications (Allergen,Severity, Reaction): Coded Allergies: Penicillins (Verified Allergy, Severe, Anaphylaxis, 03/01/17) aspirin (Verified Allergy, Severe, H/O LOW PLATELET COUNT, 02/28/17) diclofenac (Verified Allergy, Severe, 02/28/17) low plt. etodolac (Verified Allergy, Severe, 02/28/17) low plt. flurbiprofen (Verified Allergy, Severe, 02/28/17) low plt. ibuprofen (Verified Allergy, Severe, 02/28/17) low plt. indomethacin (Verified Allergy, Severe, 02/28/17) low plt. ketoprofen (Verified Allergy, Severe, 02/28/17) low plt. ketorolac (Verified Allergy, Severe, 02/28/17) low plt. naproxen (Verified Allergy, Severe, 02/28/17) low plt. oxaprozin (Verified Allergy, Severe, 02/28/17) low plt. lisinopril (Verified Adverse Reaction, Unknown, Swelling, 02/28/17) ANGIOEDEMA Reported Meds & Prescriptions Reported Meds & Active Scripts Active Peridex Liq (Chlorhexidine Gluconate (Mouth) Liq) 0.12% Soln 15 Ml SWISH-SPIT BID Ranitidine (Ranitidine HCl) 150 Mg Tab 150 Mg PO DAILY Glucocom Test Strips (Blood Glucose Test Strips) 1 [place] 1 Box .ROUTE BID Check Blood sugar twice daily Reported Promacta (Eltrombopag) 75 Mg Tab 75 Mg PO DAILY Prednisone 5 Mg Tab 5 Mg PO TID Amlodipine (Amlodipine Besylate) 10 Mg Tab 10 Mg PO HS Metformin (Metformin HCl) 500 Mg Tab 500 Mg PO DAILY With a meal Atenolol 50 Mg Tab 50 Mg PO DAILY Review of Systems Except as stated in HPI: all other systems reviewed are Neg Physical Exam Narrative GENERAL: 51yo F in moderate distress. SKIN: Focused skin assessment warm/dry. HEAD: Atraumatic. Normocephalic. EYES: Pupils equal and round. No scleral icterus. No injection or drainage. ENT: Uvula midline and not swollen. NECK: Trachea midline. No JVD. CARDIOVASCULAR: Regular rate and rhythm. No murmur appreciated. RESPIRATORY: + accessory muscle use. Clear to auscultation. Breath sounds equal bilaterally. GASTROINTESTINAL: Abdomen soft, non-tender, nondistended. No rebound tenderness or guarding. MUSCULOSKELETAL: No obvious deformities. No clubbing. No cyanosis. No edema. NEUROLOGICAL: Awake and alert. No obvious cranial nerve deficits. Motor grossly within normal limits. Normal speech. PSYCHIATRIC: Appropriate mood and affect; insight and judgment normal. Data Data Last Documented VS Vital Signs Date Time Temp Pulse Resp B/P (MAP) Pulse Ox O2 Delivery O2 Flow Rate FiO2 02/28/17 23:36 88 18 105/50 (68) 98 Nasal Cannula 4.00 02/28/17 22:44 98.7 Orders Orders Ecg Monitoring (02/28/17 23:12) Iv Access Insert/Monitor (02/28/17 23:12) Oximetry (02/28/17 23:12) Diphenhydramine Inj (Benadryl Inj) (02/28/17 23:15) Methylprednisolone So Succ Inj (Solumedr (02/28/17 23:15) Sodium Chlor 0.9% 1000 Ml Inj (Ns 1000 M (02/28/17 23:12) Sodium Chloride 0.9% Flush (Ns Flush) (02/28/17 23:15) Epinephrine (1:1000) Inj (Adrenalin (1:1 (02/28/17 23:15) Sodium Chlor 0.9% 1000 Ml Inj (Ns 1000 M (02/28/17 23:45) Complete Blood Count With Diff (02/28/17 23:32) Basic Metabolic Panel (Bmp) (02/28/17 23:32) Troponin I (02/28/17 23:32) Electrocardiogram (02/28/17 ) Chest, Single Ap (02/28/17 ) Admit Order (Ed Use Only) (03/01/17 01:42) Labs Laboratory Tests Test 02/28/17 23:32 02/28/17 23:39 White Blood Count 11.3 TH/MM3 Red Blood Count 5.00 MIL/MM3 Hemoglobin 14.4 GM/DL Hematocrit 44.4 % Mean Corpuscular Volume 88.7 FL Mean Corpuscular Hemoglobin 28.7 PG Mean Corpuscular Hemoglobin Concent 32.4 % Red Cell Distribution Width 16.3 % Platelet Count 69 TH/MM3 Mean Platelet Volume 13.7 FL Neutrophils (%) (Auto) 40.2 % Lymphocytes (%) (Auto) 51.4 % Monocytes (%) (Auto) 6.4 % Eosinophils (%) (Auto) 1.7 % Basophils (%) (Auto) 0.3 % Neutrophils # (Auto) 4.6 TH/MM3 Lymphocytes # (Auto) 5.8 TH/MM3 Monocytes # (Auto) 0.7 TH/MM3 Eosinophils # (Auto) 0.2 TH/MM3 Basophils # (Auto) 0.0 TH/MM3 CBC Comment AUTO DIFF Differential Total Cells Counted 100 Neutrophils % (Manual) 44 % Lymphocytes % 49 % Monocytes % 5 % Eosinophils % 1 % Basophils % 1 % Neutrophils # (Manual) 5.0 TH/MM3 Differential Comment FINAL DIFF MANUAL Atypical Lymphocytes % Platelet Estimate LOW Platelet Morphology Comment ENLARGED Red Cell Morphology Comment NORMAL Blood Urea Nitrogen 20 MG/DL Creatinine 0.90 MG/DL Random Glucose 176 MG/DL Calcium Level 9.6 MG/DL Sodium Level 140 MEQ/L Potassium Level 3.5 MEQ/L Chloride Level 105 MEQ/L Carbon Dioxide Level 26.4 MEQ/L Anion Gap 9 MEQ/L Estimat Glomerular Filtration Rate 79 ML/MIN Troponin I 0.02 NG/ML MDM Medical Decision Making Medical Screen Exam Complete: Yes Emergency Medical Condition: Yes Differential Diagnosis Anaphylactic reaction vs. pneumonia vs. sepsis Narrative Course 51yo F with anaphylactic reaction. Pt was hypoxic and hypotensive. Pt given epinephrine, methylprednisolone and diphenhydramine. Pt has been on surveillance monitor and 2 IVs established and received 2 liters of NS IVF. Pt's blood pressure improved to 122/78. HR 89. I have been decreasing pt's oxygen and now saturating at 99% on 2L NC. Labs reviewed, WBC 11.3. BMP unremarkable. Troponin negative. CXR showed cardiomegaly. Pt has been reevaluated and feels much better. Pt states her lip is not swollen and she can breathe. She has not required another dose of epinephrine. Discussed with resident physician and accepted to their service. Critical Care Narrative Aggregate critical care time was 50 minutes. Time to perform other separately billable procedures was not included in the critical care time. My time did not include minutes spent treating any other patients simultaneously or on activities that did not directly contribute to the patient's treatment. The services I provided to this patient were to treat and/or prevent clinically significant deterioration that could result in: Respiratory collapse or . I provided critical care services requiring my management, as noted below: Chart data review, documentation time, medication orders and management, vital sign assessments/reviewing monitor data, ordering and reviewing lab tests, ordering and interpreting/reviewing x-rays and diagnostic studies, care of the patient and discussion of the patient with the admitting physicians. Diagnosis Primary Impression: Anaphylactic reaction Qualified Codes: T78.2XXA - Anaphylactic shock, unspecified, initial encounter Admitting Information Admitting Physician Requests: Observation Lisa Singh DO Feb 28, 2017 23:58
[2017-03-01] VITALS (23 sets, daily range): BP systolic 125–161; BP diastolic 68–96; PULSE 68–108; RESP 17–20; TEMP 97.7–98.7; O2SAT 95–100
[2017-03-01 00:02] LABS: AUTOMATED NEUTROPHIL # 4.6 TH/MM3 (1.8-7.7); BASOPHIL % 0.3 % (0.0-2.0); EOSINOPHIL # 0.2 TH/MM3 (0-0.4); EOSINOPHIL % 1.7 % (0.0-4.0); HEMATOCRIT 44.4 % (35.0-46.0); LYMPH % 51.4 % (9.0-44.0); LYMPHOCYTE # 5.8 TH/MM3 (1.0-4.8); MEAN CELL VOLUME 88.7 FL (80.0-100.0); MEAN CORPUSCULAR HEMOGLOBIN 28.7 PG (27.0-34.0); MEAN CORPUSCULAR HGB CONC 32.4 % (32.0-36.0); MONO % 6.4 % (0.0-8.0); NEUT % 40.2 % (16.0-70.0); PLATELET COUNT 69 TH/MM3 (150-450); RED CELL DISTRIBUTION WIDTH 16.3 % (11.6-17.2); WHITE BLOOD COUNT 11.3 TH/MM3 (4.0-11.0)
[2017-03-01 00:10] LABS: HEMO FLAGS AUTO DIFF
[2017-03-01 00:35] LABS: BICARBONATE 26.4 MEQ/L (21.0-32.0); POTASSIUM 3.5 MEQ/L (3.5-5.1)
[2017-03-01 00:39] LABS: BASOPHILS 1 % (0-2); EOSINOPHILS 1 % (0-4); PLATELET ESTIMATE SMEAR LOW (NORMAL); POLYS (SEG NEUTROPHILS) 44 % (16-70); SCAN/DIFF FINAL DIFF MANUAL; WBC DIFF SAMPLE 100
[2017-03-01 00:40] LABS: PLATELET MORPHOLOGY ENLARGED (NORMAL)
--- NOTE | 2017-03-01 02:16 | HHI.HP ---
[facility] Service Family Medicine Primary Care Physician Mathieu Lo MD Admission Diagnosis Anaphylaxis Diagnoses: International Travel<30 Days: No Contact w/Intl Traveler<30days: No History of Present Illness 51 year old female with a history of a gingival infected cyst started taking penicillin about 7 days ago. For the past two doses of the medication she noticed she was breaking out in hives and itching all over her body, and that her face would swell up. She took the medication earlier tonight and 15 minutes later she started to get face and lip swelling, hives, and itching all over her body, as well as difficulty breathing. She came to the ED for evaluation. In the ED she became hypotensive and increasingly short of breath. At one point she was on the brink of being intubated. She was given epinephrine via IM and quickly improved. She was also given Solumedrol and Benadryl in the ED. She required up to 4L via nasal cannula in the ED with lowest O2 saturation of 88 percent, but is now 100% on room air. She is currently asymptomatic and states that she feels much better after the epinephrine. She has no coughing, shortness of breath, runny nose, sore throat, no chest pain, no abdominal pain, no nausea, vomiting, diarrhea, or dysuria. She has a chronic gingival cyst that is currently infected for which she was taking the penicillin, which has been draining pus but has improved after 7 days of penicillin. Review of Systems Constitutional: DENIES: Diaphoretic episodes, Fatigue, Chills, Change in appetite Endocrine: COMPLAINS OF: Polydipsia, Polyuria, DENIES: Heat/cold intolerance Eyes: DENIES: Diplopia, Vision loss Ears, nose, mouth, throat: DENIES: Nasal discharge, Throat pain, Hoarseness, Running Nose, Odynophagia Respiratory: COMPLAINS OF: Wheezing, Shortness of breath, DENIES: Cough Cardiovascular: DENIES: Chest pain, Dyspnea on Exertion, Orthopnea Gastrointestinal: DENIES: Abdominal pain, Diarrhea, Nausea, Vomiting, Difficulty Swallowing Genitourinary: DENIES: Urinary frequency Musculoskeletal: DENIES: Joint Swelling Integumentary: COMPLAINS OF: Rash Hematologic/lymphatic: DENIES: Lymphadenopathy Immunologic/allergic: COMPLAINS OF: Urticaria Neurologic: DENIES: Seizures Psychiatric: DENIES: Anxiety, Confusion, Depression Past Family Social History Past Medical History Diabetes Lupus: gets arthritis, rashes, not taking anything for it Low platelets: ITP Hypertension Congestive heart failure Past Surgical History Appendectomy Hysterectomy: fibroids Reported Medications Reported Meds & Active Scripts Active Peridex Liq (Chlorhexidine Gluconate (Mouth) Liq) 0.12% Soln 15 Ml SWISH-SPIT BID Penicillin V Potassium 500 Mg Tab 500 Mg PO Q8H 10 Days Ranitidine (Ranitidine HCl) 150 Mg Tab 150 Mg PO DAILY Glucocom Test Strips (Blood Glucose Test Strips) 1 [place] 1 Box .ROUTE BID Check Blood sugar twice daily Reported Promacta (Eltrombopag) 75 Mg Tab 75 Mg PO DAILY Prednisone 5 Mg Tab 5 Mg PO TID Amlodipine (Amlodipine Besylate) 10 Mg Tab 10 Mg PO HS Metformin (Metformin HCl) 500 Mg Tab 500 Mg PO DAILY With a meal Atenolol 50 Mg Tab 50 Mg PO DAILY Allergies: Coded Allergies: Penicillins (Verified Allergy, Severe, Anaphylaxis, 03/01/17) aspirin (Verified Allergy, Severe, H/O LOW PLATELET COUNT, 02/28/17) diclofenac (Verified Allergy, Severe, 02/28/17) low plt. etodolac (Verified Allergy, Severe, 02/28/17) low plt. flurbiprofen (Verified Allergy, Severe, 02/28/17) low plt. ibuprofen (Verified Allergy, Severe, 02/28/17) low plt. indomethacin (Verified Allergy, Severe, 02/28/17) low plt. ketoprofen (Verified Allergy, Severe, 02/28/17) low plt. ketorolac (Verified Allergy, Severe, 02/28/17) low plt. naproxen (Verified Allergy, Severe, 02/28/17) low plt. oxaprozin (Verified Allergy, Severe, 02/28/17) low plt. 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) lisinopril (Verified Adverse Reaction, Unknown, Swelling, 02/28/17) ANGIOEDEMA Active Ordered Medications Inpatient Medications Chlorhexidine Gluconate (Peridex 0.12% Liq) 15 ml BID SWISH-SPIT ; Start at 09:00 Dextrose (D50w (Vial) Inj) 50 ml UNSCH PRN IV PUSH HYPOGLYCEMIA-SEE COMMENTS; Start 03/01/17 at 02:30 Diphenhydramine HCl (Benadryl Inj) 50 mg ONCE ONCE IVP Last administered on 23:26; Start 02/28/17 at 23:15; Stop 02/28/17 at 23:16; Status DC Eltrombopag (Promacta) 75 mg DAILY PO ; Start 03/01/17 at 09:00 Epinephrine HCl (Adrenalin (1:1000) Inj) 0.3 mg ONCE ONCE IM Last administered on 02/28/17 23:16; Start 02/28/17 at 23:15; Stop 02/28/17 at 23 :16; Status DC Famotidine (Pepcid) 20 mg DAILY PO ; Start 03/01/17 at 09:00 Glucagon (Glucagon Inj) 1 mg UNSCH PRN OTHER HYPOGLYCEMIA-SEE COMMENTS; Start 03/01/17 at 02:30 Insulin Aspart (NovoLOG SUPPLEMENTAL SCALE) 1 ACHS SLIDING SCALE SQ ; Start at 08:00 Methylprednisolone Sodium Succinate (SoluMEDROL INJ) 125 mg ONCE ONCE IV PUSH Last administered on 02/28/17 23:26; Start 02/28/17 at 23:15; Stop 02/28/17 at 23:16; Status DC Sodium Chloride 1,000 ml @ 999 mls/hr BOLUS ONCE IV Last administered on 23:37; Start 02/28/17 at 23:45; Stop 03/01/17 at 00:45; Status DC Sodium Chloride (NS Flush) 2 ml UNSCH PRN IV FLUSH FLUSH AFTER USING IV ACCESS ; Start 02/28/17 at 23:15 Family History Mother: lung cancer, HTN, diabetes Dad: HTN, diabetes grandfather: colon cancer Nephew: lupus, low platelets Social History Smoker: occasional, does not smoke every day, tobacco use Alcohol: none Drug use: none Live with self Single Not working Physical Exam Vital Signs Vital Signs Date Time Temp Pulse Resp B/P (MAP) Pulse Ox O2 Delivery O2 Flow Rate FiO2 02/28/17 23:36 88 18 105/50 (68) 98 Nasal Cannula 4.00 02/28/17 23:29 18 98 Nasal Cannula 2.00 02/28/17 23:24 96 20 80/48 (59) 95 Nasal Cannula 4.00 02/28/17 23:16 90 71/43 02/28/17 23:12 95 20 67/34 (45) 88 Nasal Cannula 4.00 02/28/17 22:44 98.7 162 22 178/110 (132) 94 Room Air Physical Exam GENERAL: Currently comfortable, no distress, breathing room air SKIN: Minimal hives noted on arms HEENT: Mild swelling of soft tissues of face and lips, has cyst in lower gingiva about 2x2 cm, no nasal discharge, normal pharynx, patent airway NECK: Trachea midline. No JVD. CARDIOVASCULAR: Regular rate and rhythm without murmurs, gallops, or rubs. Normal pulses. Normal cap refill. RESPIRATORY: Clear to auscultation. Breath sounds equal bilaterally. No wheezes , rales, or rhonchi. GASTROINTESTINAL: Abdomen soft, non-tender, nondistended. Normal bowel sounds. MUSCULOSKELETAL: No edema. No calf tenderness. NEUROLOGICAL: Awake and alert. Cranial nerves II through XII intact. Motor and sensory grossly within normal limits. Normal speech. Laboratory Laboratory Tests Test 02/28/17 23:32 02/28/17 23:39 White Blood Count 11.3 Red Blood Count 5.00 Hemoglobin 14.4 Hematocrit 44.4 Mean Corpuscular Volume 88.7 Mean Corpuscular Hemoglobin 28.7 Mean Corpuscular Hemoglobin Concent 32.4 Red Cell Distribution Width 16.3 Platelet Count 69 Mean Platelet Volume 13.7 Neutrophils (%) (Auto) 40.2 Lymphocytes (%) (Auto) 51.4 Monocytes (%) (Auto) 6.4 Eosinophils (%) (Auto) 1.7 Basophils (%) (Auto) 0.3 Neutrophils # (Auto) 4.6 Lymphocytes # (Auto) 5.8 Monocytes # (Auto) 0.7 Eosinophils # (Auto) 0.2 Basophils # (Auto) 0.0 CBC Comment AUTO DIFF Differential Total Cells Counted 100 Neutrophils % (Manual) 44 Lymphocytes % 49 Monocytes % 5 Eosinophils % 1 Basophils % 1 Neutrophils # (Manual) 5.0 Differential Comment FINAL DIFF MANUAL Atypical Lymphocytes Platelet Estimate LOW Platelet Morphology Comment ENLARGED Red Cell Morphology Comment NORMAL Blood Urea Nitrogen 20 Creatinine 0.90 Random Glucose 176 Calcium Level 9.6 Sodium Level 140 Potassium Level 3.5 Chloride Level 105 Carbon Dioxide Level 26.4 Anion Gap 9 Estimat Glomerular Filtration Rate 79 Troponin I 0.02 Result Diagram: 02/28/17233102/28/172338 Imaging x-ray: cardiomegaly without focal consolidation or significant effusion Septic Shock Reassessment Heart: Regular rate and rhythm Lungs: Clear Skin: Warm Capillary Refill: <2 seconds Caprini VTE Risk Assessment Caprini VTE Risk Assessment: Mod/High Risk (score >= 2) VTE Pharm Contraindication: Thrombocytopenia(<50) Caprini Risk Assessment Model Point Value = 1 Point Value = 2 Point Value = 3 Point Value = 5 Age 41-60 Minor surgery BMI > 25 kg/m2 Swollen legs Varicose veins or History of unexplained or recurrent spontaneous Oral contraceptives or hormone replacement Sepsis (< 1 month) Serious lung disease, including pneumonia (< 1 month) Abnormal pulmonary function Acute myocardial infarction Congestive heart failure (< 1 month) History of inflammatory bowel disease Medical patient at bed rest Age 61-74 Arthroscopic surgery Major open surgery (> 45 min) Laparoscopic surgery (> 45 min) Malignancy Confined to bed (> 72 hours) Immobilizing plaster cast Central venous access Age >= 75 History of VTE Family history of VTE Factor V Leiden Prothrombin [id number] Lupus anticoagulant Anticardiolipin antibodies Elevated serum homocysteine Heparin-induced thrombocytopenia Other congenital or acquired thrombophilia Stroke (< 1 month) Elective arthroplasty Hip, pelvis, or leg fracture Acute spinal cord injury (< 1 month) Prophylaxis Regimen Total Risk Factor Score Risk Level Prophylaxis Regimen 0-1 Low Early ambulation 2 Moderate Order ONE of the following: *Sequential Compression Device (SCD) *Heparin 5000 units SQ BID 3-4 Higher Order ONE of the following medications: *Heparin 5000 units SQ TID *Enoxaparin/Lovenox 40 mg SQ daily (WT < 150 kg, CrCl > 30 mL/min) *Enoxaparin/Lovenox 30 mg SQ daily (WT < 150 kg, CrCl > 10-29 mL/min) *Enoxaparin/Lovenox 30 mg SQ BID (WT < 150 kg, CrCl > 30 mL/min) AND/OR *Sequential Compression Device (SCD) 5 or more Highest Order ONE of the following medications: *Heparin 5000 units SQ TID (Preferred with Epidurals) *Enoxaparin/Lovenox 40 mg SQ daily (WT < 150 kg, CrCl > 30 mL/min) *Enoxaparin/Lovenox 30 mg SQ daily (WT < 150 kg, CrCl > 10-29 mL/min) *Enoxaparin/Lovenox 30 mg SQ BID (WT < 150 kg, CrCl > 30 mL/min) AND *Sequential Compression Device (SCD) Assessment and Plan Assessment and Plan 51 year old female with likely anaphylactic response to penicillin with shock, much improved after epinephrine. Will admit to observation for close monitoring. Will need epi-pen upon discharge. Code Status FULL CODE Discussed Condition With Seen and discussed with Dr. Bah Problem List: (1) Anaphylactic reaction ICD Codes: T78.2XXA - Anaphylactic shock, unspecified, initial encounter Status: Acute Plan: Presented with anaphylactic shock after taking penicillin. Improved significantly with epinephrine 0.3 mg X1 intramuscularly and 2 liter boluses of normal saline. Chest x-ray showing cardiomegaly but no acute infection. - Continue close monitoring. - Repeat epinephrine for throat closing or shortness of breath. - Received Solumedrol IV in ED, continue with prednisone 50 mg tomorrow. - Cetirizine for symptomatic relief - DuoNebs PRN for shortness of breath or wheezing - Received 2 liter boluses in ED, continue with maintenance fluids - Check UA, blood cultures, lactic acid, rule out occult infection (2) ITP (idiopathic thrombocytopenic purpura) ICD Codes: D69.3 - Immune thrombocytopenic purpura Status: Chronic Plan: - Continue home Eltrombopag 75 mg daily - Monitor platelets, may drop with stress response (3) Gingival cyst ICD Codes: K09.0 - Developmental odontogenic cysts Status: Acute Plan: - Continue chlorhexidine swish - Follow up outpatient treatment (4) Type 2 diabetes mellitus ICD Codes: E11.9 - Type 2 diabetes mellitus Status: Chronic Plan: - diabetic diet - low dose sliding scale with accuchecks (5) Hypertension ICD Codes: I10 - Essential (primary) hypertension Status: Chronic Plan: Hold home blood pressure medications due to hypotension, resume as needed (6) Mechanical deep vein thrombosis (DVT) prophylaxis in place ICD Codes: Z78.9 - Other specified health status Plan: Low platelet count, will give mechanical DVT prophylaxis with bilateral SCD's (7) Nutrition, metabolism, and development symptoms ICD Codes: R63.8 - Other symptoms and signs concerning food and fluid intake Plan: - Normal saline at 150 mls/hr - Diabetic diet Problem Qualifiers (1) Anaphylactic reaction: Qualified Codes: T78.2XXA - Anaphylactic shock, unspecified, initial encounter (2) Hypertension: Qualified Codes: I10 - Essential (primary) hypertension Parrish Hester MD R3 Mar 01, 2017 02:16
[2017-03-01] MEDS ORDERED: GLUCAGON 1 MG/ML VIAL OTHER PRN (02:30)
[2017-03-01] MEDS ORDERED: DEXTROSE 50% IN WATER 50 ML VIAL(D50) IV PUSH PRN (02:30)
[2017-03-01] MEDS ORDERED: MAGNESIUM HYDROXIDE SUSP 30 ML CUP PO PRN (02:45)
[2017-03-01] MEDS ORDERED: SENNOSIDES 8.6 MG TAB PO PRN (02:45)
[2017-03-01] MEDS ORDERED: LACTULOSE SYRUP 20 GM/30 ML CUP PO PRN (02:45)
[2017-03-01] MEDS ORDERED: ONDANSETRON HCL 4 MG/2 ML VIAL IV PUSH PRN (02:45)
[2017-03-01] MEDS ORDERED: BISACODYL 10 MG SUPP RECTAL PRN (02:45)
[2017-03-01] MEDS ORDERED: NALOXONE HCL 0.4 MG/ML AMP IV PUSH PRN (02:45)
[2017-03-01] MEDS ORDERED: RESP: ALBUTEROL 2.5 MG/IPRATROPIUM 0.5 MG NEB (PRN) NEB (02:45)
[2017-03-01] MEDS ORDERED: SODIUM CHLORIDE 0.9% FLUSH 10 ML FLUSH IV FLUSH PRN ×2 (02:45)
[2017-03-01] MEDS: SODIUM CHLOR 0.9% 1000 ML INJ 1,000 ML IV SCH ×2 (06:08→21:04)
[2017-03-01] MEDS: INSULIN ASPART SUPPLEMENTAL SCALE SQ SCH ×4 (08:00→21:02)
[2017-03-01] MEDS: ELTROMBOPAG 25 MG PO SCH (09:00)
[2017-03-01] MEDS ORDERED: CETIRIZINE HCL 10 MG TAB PO SCH (09:00)
[2017-03-01] MEDS ORDERED: CHLORHEXIDINE 0.12% (ORAL KIT) 15 ML CUP SWISH-SPIT SCH (09:00)
[2017-03-01] MEDS: SODIUM CHLORIDE 0.9% FLUSH 10 ML FLUSH IV FLUSH SCH ×2 (09:00→21:03)
--- NOTE | 2017-03-01 09:09 | EKG ---
Date Performed: 03/01/2017 Time Performed: 00:02:21 PTAGE: 51 years EKG: Sinus rhythm POSSIBLE RIGHT ATRIAL ENLARGEMENT NONSPECIFIC T-WAVE ABNORMALITY BORDERLINE ECG PREVIOUS TRACING : 12/27/2014 14.35 Compared to previous tracing, nonspecific T wave changes ar e now present. DOCTOR: Tommy Thompson Interpretating Date/Time 03/01/2017 09:08:32
[2017-03-01] MEDS: predniSONE 50 MG TAB PO SCH (09:19)
[2017-03-01] MEDS: DOCUSATE SODIUM 50 MG/SENNA 8.6 MG TAB PO SCH ×2 (09:19→21:03)
[2017-03-01] MEDS: FAMOTIDINE 20 MG TAB PO SCH (09:20)
--- NOTE | 2017-03-01 09:30 | HHI.FPPN ---
Subjective Remarks Patient seen and examined this morning. Denies chest pain, shortness of breath, GI symptoms, itching. She feels 100% better. Brief history: She reports that she came in with itchiness, hives, and shortness of breath which worsened and required emergent interventions including IM epinephrine, Solumedrol, and didn't drop. Her symptoms also required O2 support via nasal cannula but she was on 100% room air at time of admission and continues to be on room at this time. She denies having any residual itching, coughing, or other symptoms at this time. Of note, patient was being treated for a gingival cyst/abscess for 7 days with penicillin. She has never had an allergy to penicillin and has taken it in the past. Other medical problems she reports includes CHF, hypertension, lupus, diabetes, and thrombocytopenia (ITP). Please see H&P from this morning for further details. Objective Vitals Vital Signs Date Time Temp Pulse Resp B/P (MAP) Pulse Ox O2 Delivery O2 Flow Rate FiO2 03/01/17 06:00 84 03/01/17 05:00 68 03/01/17 04:00 92 03/01/17 03:15 83 03/01/17 03:15 98.7 83 18 144/96 (112) 95 03/01/17 03:00 03/01/17 02:23 83 18 125/68 (87) 100 Room Air 02/28/17 23:36 88 18 105/50 (68) 98 Nasal Cannula 4.00 02/28/17 23:29 18 98 Nasal Cannula 2.00 02/28/17 23:24 96 20 80/48 (59) 95 Nasal Cannula 4.00 02/28/17 23:16 90 71/43 02/28/17 23:12 95 20 67/34 (45) 88 Nasal Cannula 4.00 02/28/17 22:44 98.7 162 22 178/110 (132) 94 Room Air I/O 02/28/17 02/28/17 02/28/17 03/01/17 03/01/17 03/01/17 07:00 15:00 23:00 07:00 15:00 23:00 Intake Total 2764 ml Balance 2764 ml Intake Oral 480 ml IV Total 2284 ml # Voids 1 # Bowel Movements 0 Result Diagram: 02/28/17 2332 02/28/17 2339 Imaging CXR: Cardiomegaly without focal consolidation or effusion Objective Remarks GENERAL: Obese pleasant female in no distress. Currently comfortable, breathing room air. SKIN: No hives noted on the skin, no erythema. HEENT: Mild swelling of soft tissues of face and lips, has cyst in lower gingiva about 2x2 cm, no nasal discharge, normal pharynx, patent airway. NECK: Trachea midline. No JVD. CARDIOVASCULAR: Regular rate and rhythm without murmurs, gallops, or rubs. Normal pulses. Normal cap refill. RESPIRATORY: Clear to auscultation without wheezes or rhonchi. Breath sounds equal bilaterally. GASTROINTESTINAL: Abdomen soft, non-tender, nondistended. Normal bowel sounds. MUSCULOSKELETAL: No edema. No calf tenderness. NEUROLOGICAL: Awake and alert. Cranial nerves II through XII intact. Motor and sensory grossly within normal limits. Normal speech. Medications and IVs Inpatient Medications Acetaminophen (Tylenol) 650 mg Q4H PRN PO Temp > 100.4; Start 03/01/17 at 02: 45 Albuterol/ Ipratropium (Duoneb Neb) 1 ampule Q4HR NEB PRN NEB SOB/WHEEZING; Start 03/01/17 at 02:45 Bisacodyl (Dulcolax Supp) 10 mg DAILY PRN RECTAL SEVERE CONSITIPATION/ IF NPO; Start 03/01/17 at 02:45 Cetirizine HCl (ZyrTEC) 10 mg Q12HR PO ; Start 03/01/17 at 09:00 Chlorhexidine Gluconate (Peridex 0.12% Liq) 15 ml BID SWISH-SPIT ; Start at 09:00 Dextrose (D50w (Vial) Inj) 50 ml UNSCH PRN IV PUSH HYPOGLYCEMIA-SEE COMMENTS; Start 03/01/17 at 02:30 Diphenhydramine HCl (Benadryl Inj) 50 mg ONCE ONCE IVP Last administered on t 23:26; Start 02/28/17 at 23:15; Stop 02/28/17 at 23:16; Status DC Eltrombopag (Promacta) 75 mg DAILY PO ; Start 03/01/17 at 09:00 Epinephrine HCl (Adrenalin (1:1000) Inj) 0.3 mg ONCE ONCE IM Last administered on 02/28/17 23:16; Start 02/28/17 at 23:15; Stop 02/28/17 at 23 :16; Status DC Famotidine (Pepcid) 20 mg DAILY PO ; Start 03/01/17 at 09:00 Glucagon (Glucagon Inj) 1 mg UNSCH PRN OTHER HYPOGLYCEMIA-SEE COMMENTS; Start 03/01/17 at 02:30 Insulin Aspart (NovoLOG SUPPLEMENTAL SCALE) 1 ACHS SLIDING SCALE SQ ; Start at 08:00 Lactulose (Lactulose Liq) 30 ml DAILY PRN PO SEVERE CONSITIPATION; Start 03/01 at 02:45 Magnesium Hydroxide (Milk Of Magnesia Liq) 30 ml Q12H PRN PO MILD - MODERATE CONSTIPATION; Start 03/01/17 at 02:45 Methylprednisolone Sodium Succinate (SoluMEDROL INJ) 125 mg ONCE ONCE IV PUSH Last administered on 02/28/17 23:26; Start 02/28/17 at 23:15; Stop 02/28/17 at 23:16; Status DC Naloxone HCl (Narcan Inj) 0.4 mg UNSCH PRN IV PUSH SEE LABEL COMMENTS; Start 03/01/17 at 02:45 Ondansetron HCl (Zofran Inj) 4 mg Q6H PRN IV PUSH NAUSEA; Start 03/01/17 at 02 :45 Prednisone (Deltasone) 50 mg DAILY PO ; Start 03/01/17 at 09:00 Senna/Docusate Sodium (Shabana-Colace) 1 tab BID PO ; Start 03/01/17 at 09:00 Sennosides (Senokot) 17.2 mg Q12H PRN PO MODERATE - SEVERE CONSTIPATION; Start 03/01/17 at 02:45 Sodium Chloride (NS Flush) 2 ml BID IV FLUSH ; Start 03/01/17 at 09:00 Urinary Catheter: No Vascular Central Line Catheter: No A/P Assessment and Plan 51 year old female who is admitted with likely anaphylactic response to penicillin with shock, much improved after epinephrine, IV fluids, respiratory support which has been since weaned. Will admit to observation for close monitoring. Will need epi-pen upon discharge. Discharge Planning Patient likely be discharged tomorrow or possibly later this evening if symptoms do not return Problem List: (1) Anaphylactic reaction ICD Codes: T78.2XXA - Anaphylactic shock, unspecified, initial encounter Status: Acute Plan: Presented with anaphylactic shock after taking penicillin. Improved significantly with epinephrine 0.3 mg X1 intramuscularly and 2 liter boluses of normal saline. Chest x-ray showing cardiomegaly but no acute infection. Troponin wnl - Continue close monitoring. - Repeat epinephrine indicated for throat closing or shortness of breath. - Received Solumedrol IV in ED, continue with prednisone 50 mg daily - Cetirizine daiy for symptomatic relief - DuoNebs PRN for shortness of breath or wheezing - Received 2 liter boluses in ED, continue with maintenance fluids - Check UA, blood cultures, lactic acid, rule out occult infection. Lactic acid wnl, other studies pending (2) ITP (idiopathic thrombocytopenic purpura) ICD Codes: D69.3 - Immune thrombocytopenic purpura Status: Chronic Plan: - Continue home Eltrombopag 75 mg daily - Monitor platelets, may drop with stress response, will supplement PRN (3) Gingival cyst ICD Codes: K09.0 - Developmental odontogenic cysts Status: Acute Plan: - Continue chlorhexidine swish - Follow up outpatient treatment - She notes improvement of her general cyst since taking penicillin, will monitor for now and consider switching to another antibiotic prior to discharge (4) Type 2 diabetes mellitus ICD Codes: E11.9 - Type 2 diabetes mellitus Status: Chronic Plan: - diabetic diet - low dose sliding scale with accuchecks (5) Hypertension ICD Codes: I10 - Essential (primary) hypertension Status: Chronic Plan: Hold home blood pressure medications due to hypotension, resume as needed (6) Mechanical deep vein thrombosis (DVT) prophylaxis in place ICD Codes: Z78.9 - Other specified health status Plan: Low platelet count, will give mechanical DVT prophylaxis with bilateral SCD's (7) Nutrition, metabolism, and development symptoms ICD Codes: R63.8 - Other symptoms and signs concerning food and fluid intake Plan: - Normal saline at 150 mls/hr - Diabetic diet - Pepcid for GI prophylaxis and for continued treatment of stress response Problem Qualifiers (1) Anaphylactic reaction: Qualified Codes: T78.2XXA - Anaphylactic shock, unspecified, initial encounter (2) Hypertension: Qualified Codes: I10 - Essential (primary) hypertension Sera Lo MD R2 Mar 01, 2017 09:29
[2017-03-01 10:14] LABS: BLOOD, URINE NEG (NEG); COMMENT (UR) CULT NOT INDICATED; CULTURE IF INDICATED CULT NOT INDICATED; GLUCOSE,URINE NEG (NEG); KETONE, URINE NEG (NEG); MUCUS URINE FEW /lpf (OCC); NITRITE,URINE NEG (NEG); URINE COLOR YELLOW (YELLW/STRAW)
[2017-03-01 15:51] LABS: AUTOMATED NEUTROPHIL # 12.2 TH/MM3 (1.8-7.7); BASOPHIL % 0.2 % (0.0-2.0); HEMATOCRIT 37.3 % (35.0-46.0); LYMPH % 8.5 % (9.0-44.0); LYMPHOCYTE # 1.2 TH/MM3 (1.0-4.8); MEAN CELL VOLUME 89.4 FL (80.0-100.0); MEAN CORPUSCULAR HEMOGLOBIN 27.8 PG (27.0-34.0); MEAN CORPUSCULAR HGB CONC 31.1 % (32.0-36.0); MONO % 2.2 % (0.0-8.0); NEUT % 89.1 % (16.0-70.0); PLATELET COUNT 78 TH/MM3 (150-450); RED BLOOD COUNT 4.18 MIL/MM3 (4.00-5.30); RED CELL DISTRIBUTION WIDTH 16.9 % (11.6-17.2); WHITE BLOOD COUNT 13.7 TH/MM3 (4.0-11.0)
[2017-03-01 15:52] LABS: HEMO FLAGS AUTO DIFF
[2017-03-01 16:06] LABS: ANION GAP 10 MEQ/L (5-15); AST (GOT) 13 U/L (15-37); BICARBONATE 23.2 MEQ/L (21.0-32.0); BLOOD UREA NITROGEN 14 MG/DL (7-18); CHLORIDE 107 MEQ/L (98-107); GLOMERULAR FILTRATION RATE 140 ML/MIN (>89); MAGNESIUM 2.2 MG/DL (1.5-2.5); POTASSIUM 3.9 MEQ/L (3.5-5.1); SODIUM (NA) 140 MEQ/L (136-145)
[2017-03-01 16:07] LABS: ALT (GPT) 23 U/L (10-53)
[2017-03-01 16:09] LABS: ALKALINE PHOSPHATASE 72 U/L (45-117); TOTAL BILIRUBIN ADULT 0.3 MG/DL (0.2-1.0)
[2017-03-01 16:48] LABS: PLATELET ESTIMATE SMEAR LOW (NORMAL); SCAN/DIFF AUTO DIFF CONFIRMED
[2017-03-01 16:50] LABS: PLATELET MORPHOLOGY ENLARGED (NORMAL)
[2017-03-01] MEDS: ACETAMINOPHEN 325 MG TAB PO PRN (17:33)
[2017-03-02] VITALS: BP 141/81; PULSE 91; RESP 16; TEMP 98.2; O2SAT 96
[2017-03-02 04:00] VITALS: BP 121/75; PULSE 88; RESP 17; TEMP 97.7; O2SAT 95
[2017-03-02] MEDS: ACETAMINOPHEN 325 MG TAB PO PRN (04:53)
[2017-03-02 06:58] LABS: AUTOMATED NEUTROPHIL # 9.9 TH/MM3 (1.8-7.7); BASOPHIL # 0.1 TH/MM3 (0-0.2); BASOPHIL % 0.4 % (0.0-2.0); EOSINOPHIL % 0.1 % (0.0-4.0); HEMATOCRIT 33.7 % (35.0-46.0); LYMPH % 19.4 % (9.0-44.0); LYMPHOCYTE # 2.6 TH/MM3 (1.0-4.8); MEAN CELL VOLUME 89.5 FL (80.0-100.0); MEAN CORPUSCULAR HEMOGLOBIN 28.3 PG (27.0-34.0); MEAN CORPUSCULAR HGB CONC 31.6 % (32.0-36.0); MONO % 7.3 % (0.0-8.0); NEUT % 72.8 % (16.0-70.0); PLATELET COUNT 42 TH/MM3 (150-450); RED BLOOD COUNT 3.77 MIL/MM3 (4.00-5.30); RED CELL DISTRIBUTION WIDTH 17.1 % (11.6-17.2); WHITE BLOOD COUNT 13.6 TH/MM3 (4.0-11.0)
[2017-03-02 07:12] LABS: HEMO FLAGS AUTO DIFF
[2017-03-02 07:13] LABS: POTASSIUM 3.6 MEQ/L (3.5-5.1)
[2017-03-02 08:00] VITALS: BP 156/95; PULSE 79; RESP 16; TEMP 96.5; O2SAT 95
[2017-03-02] MEDS: INSULIN ASPART SUPPLEMENTAL SCALE SQ SCH (08:00)
[2017-03-02] MEDS: FAMOTIDINE 20 MG TAB PO SCH (08:18)
[2017-03-02] MEDS: predniSONE 50 MG TAB PO SCH (08:18)
[2017-03-02] MEDS: DOCUSATE SODIUM 50 MG/SENNA 8.6 MG TAB PO SCH (08:18)
[2017-03-02] MEDS: ELTROMBOPAG 25 MG PO SCH (08:19)
[2017-03-02] MEDS ORDERED: CETIRIZINE HCL 10 MG TAB PO SCH (09:00)
[2017-03-02 09:01] LABS: PLATELET ESTIMATE SMEAR LOW (NORMAL); SCAN/DIFF AUTO DIFF CONFIRMED
[2017-03-02 09:02] LABS: PLATELET MORPHOLOGY ENLARGED (NORMAL)
--- NOTE | 2017-03-02 09:41 | HHI.FPPN ---
Subjective Remarks Pt seen and examined this morning. No acute events overnight. AFVSS. Pt reports feeling well this morning. She denies any swelling of her mouth or tongue. No rashes or skin changes. She still endorses a small amount of purulent drainage from gingival lesion. She reports feeling well overall and expresses the desire to go home. When she was last seen by the oral surgeon she was told that her platelets would need to be higher to have lesion removed. She is following up with heme/onc as an outpatient. (Mathieu Lawson MD R3) Objective Vitals Vital Signs Date Time Temp Pulse Resp B/P (MAP) Pulse Ox O2 Delivery O2 Flow Rate FiO2 03/02/17 08:00 96.5 79 16 156/95 (115) 95 03/02/17 04:00 97.7 88 17 121/75 (90) 95 03/02/17 00:00 98.2 91 16 141/81 (101) 96 03/01/17 20:00 93 03/01/17 19:04 97.7 88 17 144/73 (96) 97 03/01/17 18:01 99 03/01/17 17:00 82 03/01/17 16:00 102 03/01/17 15:15 97.7 96 20 161/95 (117) 96 03/01/17 15:00 69 03/01/17 14:00 94 03/01/17 13:01 107 03/01/17 12:01 97.7 86 20 148/82 (104) 96 03/01/17 12:00 108 03/01/17 11:38 95 03/01/17 11:00 99 03/01/17 10:00 86 I/O 03/01/17 03/01/17 03/01/17 03/02/17 03/02/17 03/02/17 07:00 15:00 23:00 07:00 15:00 23:00 Intake Total 2764 ml 1626 ml 480 ml Output Total 900 ml Balance 2764 ml 726 ml 480 ml Intake Oral 480 ml 1626 ml 480 ml IV Total 2284 ml Output Urine Total 900 ml # Voids 1 6 2 # Bowel Movements 0 1 (Mathieu Lawson MD R3) Result Diagram: 03/02/1738 03/02/17537 Objective Remarks GENERAL: well nourished, well developed patient, in no acute distress. SKIN: No hives or obvious rashes noted on the skin, no erythema. HEENT: No significant facial edema. Lesion of lower gingiva about 2x2 cm, no nasal discharge, normal pharynx, patent airway. NECK: Trachea midline. No JVD. CARDIOVASCULAR: Regular rate and rhythm without murmurs, gallops, or rubs. Normal pulses. Normal cap refill. RESPIRATORY: Clear to auscultation without wheezes or rhonchi. Breath sounds equal bilaterally. GASTROINTESTINAL: Abdomen soft, non-tender, nondistended. Normal bowel sounds. MUSCULOSKELETAL: No edema. No calf tenderness. NEUROLOGICAL: Awake and alert. Cranial nerves II through XII intact. Motor and sensory grossly within normal limits. Normal speech. (Mathieu Lawson MD R3) A/P Assessment and Plan 51 year old female who is admitted with likely anaphylactic response to penicillin with shock, much improved after epinephrine, IV fluids, respiratory support which has been since weaned. Will admit to observation for close monitoring. Will need epi-pen upon discharge. Discharge Planning Anticipate discharge later today. (Mathieu Lawson MD R3) Attending Attestation THIS CASE WAS DISCUSSED WITH THE RESIDENT PHYSICIANS DR Abdias LAWSON,DR Severo LAWSON ,DR SHARP AND DR SIMMONS. I HAVE REVIEWED THE RECORD,PATIENT WAS SEEN AND EXAMINED AND AGREE WITH THE ABOVE NOTE AND PLAN OF CARE WAS DISCUSSED. I HAVE AUTHORIZED THE ORDERS (Hasmukh Samuels MD) Problem List: (1) Anaphylactic reaction ICD Codes: T78.2XXA - Anaphylactic shock, unspecified, initial encounter Status: Acute Plan: Presented with anaphylaxis after taking penicillin. Improved significantly with epinephrine 0.3 mg X1 intramuscularly and 2 liter boluses of normal saline. Chest x-ray showing cardiomegaly but no acute infection. Troponin wnl - Continue close monitoring. - Repeat epinephrine indicated for throat closing or shortness of breath. - Received Solumedrol IV in ED, continue with prednisone 50 mg daily - Cetirizine daily for symptomatic relief - DuoNebs PRN for shortness of breath or wheezing (2) ITP (idiopathic thrombocytopenic purpura) ICD Codes: D69.3 - Immune thrombocytopenic purpura Status: Chronic Plan: - Continue home Eltrombopag 75 mg daily - Monitor platelets (3) Gingival cyst ICD Codes: K09.0 - Developmental odontogenic cysts Status: Acute Plan: - Continue chlorhexidine swish - Follow up outpatient treatment - She notes improvement of her general cyst since taking penicillin (4) Type 2 diabetes mellitus ICD Codes: E11.9 - Type 2 diabetes mellitus Status: Chronic Plan: - diabetic diet - low dose sliding scale with accuchecks (5) Hypertension ICD Codes: I10 - Essential (primary) hypertension Status: Chronic Plan: Hold home blood pressure medications due to hypotension, resume as needed (6) Mechanical deep vein thrombosis (DVT) prophylaxis in place ICD Codes: Z78.9 - Other specified health status Plan: Low platelet count, will give mechanical DVT prophylaxis with bilateral SCD's (7) Nutrition, metabolism, and development symptoms ICD Codes: R63.8 - Other symptoms and signs concerning food and fluid intake Plan: - Normal saline at 150 mls/hr - Diabetic diet - Pepcid for GI prophylaxis and for continued treatment of stress response (Mathieu Lawson MD R3) Problem Qualifiers (1) Anaphylactic reaction: Qualified Codes: T78.2XXA - Anaphylactic shock, unspecified, initial encounter Mathieu Lawson MD R3 Mar 02, 2017 09:41 Hasmukh Samuels MD Mar 03, 2017 06:13
--- NOTE | 2017-03-02 10:19 | HHI.DCPOC ---
Discharge Care Plan Diagnosis: (1) Anaphylactic reaction (2) Gingival cyst (3) Diabetes (4) Hypertension Goals to Promote Your Health * To prevent worsening of your condition and complications * To maintain your health at the optimal level Directions to Meet Your Goals Take your medications as prescribed Follow your dietary instruction Follow activity as directed Keep your appointments as scheduled Take your immunizations and boosters as scheduled If your symptoms worsen call your PCP, if no PCP go to Urgent Care Center or Emergency Room Smoking is Dangerous to Your Health. Avoid second hand smoke Call the 24-hour hour crisis hotline for domestic abuse at Mathieu Lo MD R3 Mar 02, 2017 10:19
[2017-03-02] MEDS ORDERED: CLIN1CAP6 PO (10:28)
[2017-03-02] MEDS ORDERED: EPIP0.3I IM (10:28)
[2017-03-02] MEDS ORDERED: FAMOTIDINE 20 MG TAB PO SCH (21:00)
== END 2017-03-02 15:52 | disposition home or self-care (01) ==
LOC: NEPE 22:41 → NEDA 03-01 01:44 → HCIN 03-01 03:03 → N06A 03-01 18:45
PROVIDERS: ADMIT Family Medicine; ATTEND Family Medicine
DX: T88.6XXA Anaphylactic reaction due to adverse effect of correct drug or medicament properly administered, initial encounter (principal); T36.0X5A Adverse effect of penicillins, initial encounter; L29.9 Pruritus, unspecified; R06.02 Shortness of breath; R06.2 Wheezing; I95.9 Hypotension, unspecified; R09.02 Hypoxemia; R11.0 Nausea; D69.3 Immune thrombocytopenic purpura; K09.0 Developmental odontogenic cysts; R63.8 Other symptoms and signs concerning food and fluid intake; R63.1 Polydipsia; R35.8 Other polyuria; I11.0 Hypertensive heart disease with heart failure; I50.9 Heart failure, unspecified; L93.0 Discoid lupus erythematosus; E11.9 Type 2 diabetes mellitus without complications; E03.9 Hypothyroidism, unspecified; F17.200 Nicotine dependence, unspecified, uncomplicated; M19.90 Unspecified osteoarthritis, unspecified site; Z79.899 Other long term (current) drug therapy; Z79.84 Long term (current) use of oral hypoglycemic drugs; K21.9 Gastro-esophageal reflux disease without esophagitis
CPT/HCPCS: 71010; 80048; 80053; 81001; 82948; 83605; 83735; 84484; 85007; 85025; 85027; 87040; 93005; 96360; 96361; 96372; 96374; 96375; G0378; J0171; J1200; J1815; J2930; J7030; J7512

== ENCOUNTER → 2017-04-19 | Outpatient (CLI) | payer MEDICARE, OTHER ==
[~2017-04-19] MED LIST changes: +EPIP0.3I IM; +METO1TAB42 PO; -PENI500T PO; +TRAM50TA PO
[2017-04-19 13:06] LABS: HEMATOCRIT 37.2 % (35.0-46.0); MEAN CELL VOLUME 89.8 FL (80.0-100.0); MEAN CORPUSCULAR HEMOGLOBIN 29.1 PG (27.0-34.0); MEAN CORPUSCULAR HGB CONC 32.4 % (32.0-36.0); PLATELET COUNT 94 TH/MM3 (150-450); RED BLOOD COUNT 4.14 MIL/MM3 (4.00-5.30); RED CELL DISTRIBUTION WIDTH 15.9 % (11.6-17.2); WHITE BLOOD COUNT 9.1 TH/MM3 (4.0-11.0)
[2017-04-19 13:11] LABS: REVIEW FLAG FINAL
[2017-04-19 13:27] LABS: FREE T4 0.95 NG/DL (0.76-1.46); HDL CHOLESTEROL 47.6 MG/DL (40.0-60.0); LDL CHOLESTEROL 101 MG/DL (0-99)
[2017-04-19 14:13] LABS: HEMOGLOBIN A1a 1.8 %; HEMOGLOBIN A1b 1.1 %; HEMOGLOBIN Ao 81.6 %; HEMOGLOBIN F 1.2 %; HEMOGLOBIN LA1C 2.2 %
== END ==
LOC: CLAB 12:29
PROVIDERS: ATTEND Family Medicine
DX: I10 Essential (primary) hypertension (principal); E11.9 Type 2 diabetes mellitus without complications; D69.3 Immune thrombocytopenic purpura; E66.9 Obesity, unspecified
CPT/HCPCS: 36415; 80061; 83036; 84439; 84443; 85027

== ENCOUNTER 2017-06-24 09:47 | Emergency (ER) | payer MEDICARE, OTHER ==
[~2017-06-24] VITALS: Ht 154.9 cm; Wt 150.0 kg
[2017-06-24 09:50] VITALS: BP 188/90; PULSE 96; RESP 19; TEMP 98.1; O2SAT 95
[2017-06-24 11:36] VITALS: RESP 20; O2SAT 97
[2017-06-24 11:39] VITALS: BP 166/76; PULSE 72; RESP 20; TEMP 98.5; O2SAT 97
[2017-06-24 11:45] LABS: AUTOMATED NEUTROPHIL # 3.7 TH/MM3 (1.8-7.7); BASOPHIL # 0.1 TH/MM3 (0-0.2); BASOPHIL % 0.9 % (0.0-2.0); EOSINOPHIL # 0.1 TH/MM3 (0-0.4); EOSINOPHIL % 1.8 % (0.0-4.0); HEMATOCRIT 37.1 % (35.0-46.0); LYMPH % 34.9 % (9.0-44.0); LYMPHOCYTE # 2.4 TH/MM3 (1.0-4.8); MEAN CELL VOLUME 87.7 FL (80.0-100.0); MEAN CORPUSCULAR HEMOGLOBIN 28.4 PG (27.0-34.0); MEAN CORPUSCULAR HGB CONC 32.4 % (32.0-36.0); MEAN PLATELET VOLUME 12.5 FL (7.0-11.0); MONO % 7.4 % (0.0-8.0); MONOCYTE # 0.5 TH/MM3 (0-0.9); PLATELET COUNT 29 TH/MM3 (150-450); RED BLOOD COUNT 4.23 MIL/MM3 (4.00-5.30); RED CELL DISTRIBUTION WIDTH 16.2 % (11.6-17.2); WHITE BLOOD COUNT 6.8 TH/MM3 (4.0-11.0)
[2017-06-24 11:57] LABS: CALCIUM 9.5 MG/DL (8.5-10.1); CREATININE 0.62 MG/DL (0.50-1.00)
--- NOTE | 2017-06-24 12:20 | PD ---
HPI Chief Complaint: Respiratory Symptoms Time Seen by Provider: 11:46 Travel History International Travel<30 days: No Contact w/Intl Traveler<30days: No Traveled to known affect area: No History of Present Illness HPI patient c/o sob for about a month, severity is about 6/10, worsened by laying flat on her back, stated that she took her friends water pill and it helped but only for a couple of days....patient had a viral illness that she recovered from 2 weeks ago. Denies any associated factors such as fever, headache, chest pain, abdominal pain, back pain, nausea, vomiting, or diarrhea PFSH Past Medical History Arthritis: Yes Asthma: No Autoimmune Disease: Yes (Lupus ) Blood Disorders: No Heart Rhythm Problems: No Cancer: No Cardiac Catheterization: No Cardiovascular Problems: Yes (CHF) High Cholesterol: No Chemotherapy: No Chest Pain: No Congestive Heart Failure: Yes COPD: No Diabetes: Yes Patient Takes Glucophage: Yes Diminished Hearing: No Endocrine: No Gastrointestinal Disorders: Yes GERD: Yes Genitourinary: No Hepatitis: No Hiatal Hernia: No Hypertension: Yes Immune Disorder: No Kidney Stones: No Medical other: Yes (arthritis) Musculoskeletal: Yes ("LOWER BACK DISCS DETERIORATED") Neurologic: No Psychiatric: No Reproductive: No Respiratory: Yes Immunizations Current: No Myocardial Infarction: No Radiation Therapy: No Renal Failure: No Sickle Cell Disease: No Sleep Apnea: No Thyroid Disease: Yes (HYPOTHYROID) Ulcer: Yes Tetanus Vaccination: > 5 Years Influenza Vaccination: No ?: Not Menopausal: Yes : 0 Para: 0 Miscarriage: 0 : 0 Past Surgical History Abdominal Surgery: Yes (REMOVAL OF TUMOR IN THE STOMACH, APPY) AICD: No Appendectomy: Yes Arteriovenous Shunt: No Cardiac Surgery: No Ear Surgery: No Endocrine Surgery: No Eye Surgery: No Genitourinary Surgery: No Gynecologic Surgery: Yes (hysterectomy) Hysterectomy: Yes Insulin Pump: No Joint Replacement: No Oral Surgery: No Pacemaker: No Thoracic Surgery: No Other Surgery: Yes Social History Alcohol Use: No Tobacco Use: Yes (1 pack/wk) Substance Use: No Allergies-Medications (Allergen,Severity, Reaction): Coded Allergies: Penicillins (Verified Allergy, Severe, Anaphylaxis, 03/25/17) lisinopril (Verified Allergy, Unknown, Swelling, 06/24/17) ANGIOEDEMA aspirin (Verified Adverse Reaction, Severe, H/O LOW PLATELET COUNT, 06/24/17 ) diclofenac (Verified Adverse Reaction, Severe, 06/24/17) low plt. etodolac (Verified Adverse Reaction, Severe, 06/24/17) low plt. flurbiprofen (Verified Adverse Reaction, Severe, 06/24/17) low plt. ibuprofen (Verified Adverse Reaction, Severe, 06/24/17) low plt. indomethacin (Verified Adverse Reaction, Severe, 06/24/17) low plt. ketoprofen (Verified Adverse Reaction, Severe, 06/24/17) low plt. ketorolac (Verified Adverse Reaction, Severe, 06/24/17) low plt. naproxen (Verified Adverse Reaction, Severe, 06/24/17) low plt. oxaprozin (Verified Adverse Reaction, Severe, 06/24/17) low plt. Reported Meds & Prescriptions Reported Meds & Active Scripts Active Doxycycline Hyclate 100 Mg Cap 100 Mg PO BID 7 Days Proventil Hfa 6.7 GM Inh (Albuterol Sulfate) 90 Mcg/Act Aer 2 Puff INH Q4-6H PRN Medrol Dosepak (Methylprednisolone) 4 Mg Dspk 4 Mg PO DIRECTED Per Pharmacist direction Tramadol (Tramadol HCl) 50 Mg Tab 50 Mg PO Q6H PRN Metoprolol Succinate ER 24 HR (Metoprolol Succinate) 25 Mg Tab 25 Mg PO DAILY Amlodipine (Amlodipine Besylate) 10 Mg Tab 10 Mg PO HS Atenolol 50 Mg Tab 50 Mg PO DAILY Ranitidine (Ranitidine HCl) 150 Mg Tab 150 Mg PO DAILY Reported Promacta (Eltrombopag) 75 Mg Tab 75 Mg PO DAILY Prednisone 5 Mg Tab 5 Mg PO TID Metformin (Metformin HCl) 500 Mg Tab 500 Mg PO DAILY With a meal Review of Systems General / Constitutional: No: Fever Eyes: No: Visual changes HENT: No: Headaches Cardiovascular: No: Chest Pain or Discomfort Respiratory: Positive: Shortness of Breath Gastrointestinal: No: Abdominal Pain Genitourinary: No: Dysuria Musculoskeletal: No: Pain Skin: No Rash Neurologic: No: Weakness Psychiatric: No: Depression Endocrine: No: Polydipsia Hematologic/Lymphatic: No: Easy Bruising Physical Exam Narrative GENERAL: SKIN: Warm and dry. HEAD: Atraumatic. Normocephalic. EYES: Pupils equal and round. No scleral icterus. No injection or drainage. ENT: No nasal bleeding or discharge. Mucous membranes pink and moist. NECK: Trachea midline. No JVD. CARDIOVASCULAR: Regular rate and rhythm. RESPIRATORY: No accessory muscle use. bilateral wheezing noted, but good tv GASTROINTESTINAL: Abdomen soft, non-tender, nondistended MUSCULOSKELETAL: Extremities without clubbing, cyanosis, or edema. No obvious deformities. NEUROLOGICAL: Awake and alert. No obvious cranial nerve deficits. Motor grossly within normal limits. Five out of 5 muscle strength in the arms and legs. Normal speech. PSYCHIATRIC: Appropriate mood and affect; insight and judgment normal. Data Data Last Documented VS Vital Signs Date Time Temp Pulse Resp B/P (MAP) Pulse Ox O2 Delivery O2 Flow Rate FiO2 06/24/17 15:09 06/24/17 14:45 76 20 97 Room Air 06/24/17 11:39 98.5 Orders Orders Complete Blood Count With Diff (06/24/17 10:52) Basic Metabolic Panel (Bmp) (06/24/17 10:52) Chest, Pa & Lat (06/24/17 10:52) Iv Access Insert/Monitor (06/24/17 10:52) Ecg Monitoring (06/24/17 10:52) Oxygen Administration (06/24/17 10:52) Oximetry (06/24/17 10:52) Electrocardiogram (06/24/17 10:52) B-Type Natriuretic Peptide (06/24/17 11:02) Methylprednisolone So Succ Inj (Solumedr (06/24/17 14:30) Albuterol-Ipratropium Neb (Duoneb Neb) (06/24/17 14:30) Ed Discharge Order (06/24/17 14:34) Labs Laboratory Tests Test 06/24/17 11:05 White Blood Count 6.8 TH/MM3 Red Blood Count 4.23 MIL/MM3 Hemoglobin 12.0 GM/DL Hematocrit 37.1 % Mean Corpuscular Volume 87.7 FL Mean Corpuscular Hemoglobin 28.4 PG Mean Corpuscular Hemoglobin Concent 32.4 % Red Cell Distribution Width 16.2 % Platelet Count 29 TH/MM3 Mean Platelet Volume 12.5 FL Neutrophils (%) (Auto) 55.0 % Lymphocytes (%) (Auto) 34.9 % Monocytes (%) (Auto) 7.4 % Eosinophils (%) (Auto) 1.8 % Basophils (%) (Auto) 0.9 % Neutrophils # (Auto) 3.7 TH/MM3 Lymphocytes # (Auto) 2.4 TH/MM3 Monocytes # (Auto) 0.5 TH/MM3 Eosinophils # (Auto) 0.1 TH/MM3 Basophils # (Auto) 0.1 TH/MM3 CBC Comment AUTO DIFF Differential Comment AUTO DIFF CONFIRMED Platelet Estimate LOW Platelet Morphology Comment ENLARGED Blood Urea Nitrogen 14 MG/DL Creatinine 0.62 MG/DL Random Glucose 129 MG/DL Calcium Level 9.5 MG/DL Sodium Level 138 MEQ/L Potassium Level 3.7 MEQ/L Chloride Level 105 MEQ/L Carbon Dioxide Level 26.0 MEQ/L Anion Gap 7 MEQ/L Estimat Glomerular Filtration Rate 122 ML/MIN B-Type Natriuretic Peptide 8 PG/ML MDM Medical Decision Making Medical Screen Exam Complete: Yes Emergency Medical Condition: Yes Medical Record Reviewed: Yes Interpretation(s) nsr, rate of 82, P pulmonale pattern, nl intervals, without stemi pattern Differential Diagnosis Pneumonia versus bronchospasm versus pulmonary edema versus STEMI Narrative Course Patient CBC did not show any evidence of leukocytosis or leukopenia, also no evidence of anemia. CMP showed within normal limits electrolytes, showed normal liver kidney pancreas functions. Coagulation profile were within normal limits. Beta natruretic peptide also within normal limits. EKG did not show any evidence of STEMI. Diagnosis Primary Impression: Acute bronchospasm Patient Instructions: Bronchospasm (ED), General Instructions Scripts Doxycycline Hyclate (Doxycycline Hyclate) 100 Mg Cap 100 MG PO BID for Infection for 7 Days, #14 CAP 0 Refills Prov: Chris Wiggins MD 06/24/17 Albuterol 6.7 GM Inh (Proventil Hfa 6.7 GM Inh) 90 Mcg/Act Aer 2 PUFF INH Q4-6H Y for SHORTNESS OF BREATH, #1 INHALER 2 Refills Prov: Chris Wiggins MD 06/24/17 Methylprednisolone Dosepak (Medrol Dosepak) 4 Mg Dspk 4 MG PO DIRECTED, #1 DSPK 0 Refills Per Pharmacist direction Prov: Chris Wiggins MD 06/24/17 Disposition: 01 DISCHARGE HOME Condition: Stable Chris Wiggins MD Jun 24, 2017 12:20
--- NOTE | 2017-06-24 13:19 | RADRPT ---
EXAM DATE/TIME: 06/24/2017 11:14 [facility] COMPARISON: No previous studies available for comparison. INDICATIONS : Cough. MEDICAL HISTORY : Hypertension. Diabetes mellitus type II. Congestive heart failure. SURGICAL HISTORY : None. ENCOUNTER: Initial ACUITY: 1 month PAIN SCORE: 0/10 LOCATION: Bilateral chest FINDINGS: PA and lateral views of the chest demonstrate the lungs to be symmetrically aerated without evidence of mass, infiltrate or effusion. The cardiomediastinal contours are unremarkable. Osseous structure s are intact. CONCLUSION: No acute disease. Gary Tarango MD on June 24, 2017 at 13:17 Board Certified Radiologist. This report was verified electronically.
[2017-06-24] MEDS ORDERED: methylPREDNISolone SOD SUCC 125 MG/2 ML VIAL IV PUSH ONE (14:30)
[2017-06-24] MEDS ORDERED: MEDR4PAK PO (14:31)
[2017-06-24] MEDS ORDERED: ALBU6.7H INH (14:31)
[2017-06-24] MEDS ORDERED: DOXY100C PO (14:31)
[2017-06-24] MEDS: RESP: ALBUTEROL 2.5 MG/IPRATROPIUM 0.5 MG NEB (SCH) INH (14:36)
[2017-06-24 14:45] VITALS: BP 152/74; PULSE 76; RESP 20; O2SAT 97
--- NOTE | 2017-06-24 21:54 | EKG ---
Date Performed: 06/24/2017 Time Performed: 10:59:07 PTAGE: 51 years EKG: Sinus rhythm POSSIBLE LEFT ATRIAL ENLARGEMENT BORDERLINE ECG PREVIOUS TRACING : 03/01/2017 00.02 DOCTOR: Gerri Garcia Interpretating Date/Time 06/24/2017 21:52:04
== END 2017-06-24 15:11 | disposition home or self-care (01) ==
LOC: NEPC 09:47
DX: J98.01 Acute bronchospasm (principal); E11.9 Type 2 diabetes mellitus without complications; I11.0 Hypertensive heart disease with heart failure; I50.9 Heart failure, unspecified; K21.9 Gastro-esophageal reflux disease without esophagitis; F17.200 Nicotine dependence, unspecified, uncomplicated; Z79.84 Long term (current) use of oral hypoglycemic drugs
CPT/HCPCS: 71046; 80048; 83880; 85025; 93005; 94640; 94664; 96374; 99285; J2930

== ENCOUNTER 2018-03-16 21:09 | Observation (INO) ==
--- NOTE | 2018-03-16 21:20 | ED ---
HPI General Chief Complaint: Headache Stated Complaint: head pain xtoday Time Seen by Provider: 03/16/18 21:20 Source: patient Mode of arrival: ambulatory Limitations: no limitations History of Present Illness HPI Narrative: 52-year-old female came to the emergency room with history of headache on the right side that started last night. Patient says that usually she does not get bad headaches. It was a sharp shooting pain from the midline to the right temporal area in the front. She went to bed and when she woke up she still had some headache mostly on the right side along with redness of her right eye. As the day progressed she noticed that the redness in her right eye kept getting worse and she noticed some periorbital swelling which concerned her. She has history of lupus and thrombocytopenia. This bothered her and she came to the emergency room to be evaluated. Currently patient says her pain is 4-5 out of 10 and is a dull throbbing headache on the right side. No history of nausea or vomiting. No history of fever or chills. No history of syncopal episode. Patient was hypertensive in triage. However once she came into the room a repeat blood pressure done by the nurse was 166 systolic. Patient has history of high blood pressure and she says she takes 2 different blood pressure pills which she has been taking. She does not recall the names of those. No aggravating or relieving symptoms. She has had some blurred vision in that eye. Complaint: Reports headache Onset (ago): day(s) Onset description: "thunderclap" Location: Reports right Severity: moderate Severity scale (1-10): 5 Quality: Reports aching Relieving factors: nothing Exacerbating factors: none Associated symptoms: Reports none Related Data Home Medications Medication Instructions Recorded Confirmed atenolol 25 mg PO DAILY 03/08/18 03/16/18 Previous Rx's Medication Instructions Recorded tramadol 50 mg PO Q6H PRN #10 tab 03/08/18 metformin 500 mg PO BID #60 tab 03/19/18 metformin [Glucophage] 500 mg PO BID #60 tab 03/19/18 prednisone 60 mg PO DAILY #42 tab 03/19/18 Allergies Allergy/AdvReac Type Severity Reaction Status Date / Time Penicillins Allergy Severe Anaphylaxis Verified 03/08/18 10:00 lisinopril Allergy Unknown Swelling Verified 03/08/18 10:00 aspirin AdvReac Severe H/O LOW Verified 03/08/18 10:00 PLATELET COUNT diclofenac AdvReac Severe Bleeding Verified 03/08/18 10:00 etodolac AdvReac Severe Bleeding Verified 03/08/18 10:00 flurbiprofen AdvReac Severe Bleeding Verified 03/08/18 10:00 ibuprofen AdvReac Severe Bleeding Verified 03/08/18 10:00 indomethacin AdvReac Severe Bleeding Verified 03/08/18 10:00 ketoprofen AdvReac Severe Bleeding Verified 03/08/18 10:00 ketorolac AdvReac Severe Bleeding Verified 03/08/18 10:00 naproxen AdvReac Severe Bleeding Verified 03/08/18 10:00 oxaprozin AdvReac Severe Bleeding Verified 03/08/18 10:00 Review of Systems ROS: all other systems reviewed are negative PMFSH History History Provided By: Patient Medical History Medical History Diabetes (Acute) History of benign tumor of lip (Acute) History of lupus (Acute) Hypertension (Acute) Immune thrombocytopenic purpura (Acute) Morbid obesity (Acute) Obstructive sleep apnea (Acute) Surgical History Surgical History Hx of appendectomy (Acute) Social History Social History Substance History: No History of Abuse Second Hand Smoke Exposure: Yes Smoking Status: Current some day smoker Tobacco Type: Cigarettes How Often Do You Have a Drink Containing Alcohol: Never Recent Travel in [facility] within the Last 8 Weeks: No Recent Out of Country Travel within the Last 8 Weeks: No Exam Narrative Exam Narrative: GENERAL: Awake, alert, morbidly obese, anxious, mild distress SKIN: Focused skin assessment warm/dry. HEAD: Atraumatic. Normocephalic. EYES: Pupils equal and round. No scleral icterus. Right eye subconjunctival hemorrhage on the temporal aspect of the sclera. Slight periorbital edema. Conjugate eye movement intact. No pain on eye movement per ENT: No nasal bleeding or discharge. Mucous membranes pink and moist. NECK: Trachea midline. No JVD. CARDIOVASCULAR: Regular rate and rhythm. No murmur appreciated. RESPIRATORY: No accessory muscle use. Clear to auscultation. Breath sounds equal bilaterally. GASTROINTESTINAL: Abdomen soft, non-tender, nondistended. Hepatic and splenic margins not palpable. MUSCULOSKELETAL: No obvious deformities. No clubbing. No cyanosis. No edema. NEUROLOGICAL: Awake and alert. No obvious cranial nerve deficits. Motor grossly within normal limits. Normal speech. PSYCHIATRIC: Appropriate mood and affect; insight and judgment normal. Course Initial Documented Vital Signs Temperature 98.8 F 03/16/18 21:10 Pulse Rate 84 03/16/18 21:10 Respiratory Rate 22 03/16/18 21:10 Blood Pressure 215/89 H 03/16/18 21:10 Pulse Oximetry 97 03/16/18 21:10 Last Documented Vital Signs Temperature 96.6 F L 03/19/18 15:49 Pulse Rate 67 03/19/18 15:49 Respiratory Rate 20 03/19/18 15:49 Blood Pressure 136/70 03/19/18 15:49 Pulse Oximetry 95 03/19/18 15:49 Medical Decision Making MDM Narrative Medical decision making narrative: 11:10 PM blood test results are back and patient has critical thrombocytopenia. I looked at her previous labs and she has not been this low and her platelet count in the past. Rest of her blood test results are within acceptable limits. Blood pressure continues to be moderate. Head CT has been read by the radiologist to be negative for intracranial bleed. I put a call out for the burlapper to discuss about the thrombocytopenia and further management. Patient was informed about her test results and the plan. She does not have a burlapper currently. 12:28 AM the on-call burlapper has not called back yet. It is Dr. Lo. Under the circumstances I am uncomfortable discharging her home with such critically low platelet count. I discussed the case with the hospitalist who has accepted the patient. It was discovered that patient has been seeing Dr. Park up until a month or so back. I discussed this with the patient. She agrees to stay in the hospital. Hematology consultation would be requested. Medical Screen Exam Complete: Yes Emergency Medical Condition: Yes Lab Data Result diagrams: 03/19/18 06:29 03/18/18 07:10 Lab Results 03/16/18 03/16/18 03/16/18 Range/Units 21:45 21:45 21:45 CBC w Diff Slide review pending WBC 9.3 (4.0-11.0) th/mm3 RBC 4.30 (4.00-5.30) mil/mm3 Hgb 12.5 (11.6-15.3) gm/dL Hct 38.5 (35.0-46.0) % MCV 89.7 (80.0-100.0) fL MCH 29.2 (27.0-34.0) pg MCHC 32.5 (32.0-36.0) % RDW 15.2 (11.6-17.2) % Plt Count 17 L* (150-450) th/mm3 MPV 12.1 H (7.0-11.0) fL Neut % (Auto) 59.6 (16.0-70.0) % Lymph % (Auto) 34.1 (9.0-44.0) % [place] % (Auto) 3.6 (0.0-8.0) % Eos % (Auto) 1.4 (0.0-4.0) % Baso % (Auto) 1.3 (0.0-2.0) % Neut # (Auto) 5.6 (1.8-7.7) th/mm3 Lymph # (Auto) 3.2 (1.0-4.8) th/mm3 [place] # (Auto) 0.3 (0.0-0.9) th/mm3 Eos # (Auto) 0.1 (0.0-0.4) th/mm3 Baso # (Auto) 0.1 (0.0-0.2) th/mm3 WBC Differential . Diff Scan Auto diff confirmed Differential Comment . Platelet Estimate Low L (Normal) Platelet Morphology Giant H (Normal) RBC Morphology Normal (Normal) ESR 39 H (0-30) mm/hr Sodium 142 (136-145) meq/L Potassium 4.1 (3.5-5.1) meq/L Chloride 107 (98-107) meq/L Carbon Dioxide 29.2 (21.0-32.0) meq/L Anion Gap 6 (5-15) meq/L BUN 12 (7-18) mg/dL Creatinine 0.94 (0.50-1.00) mg/dL Estimated GFR 75 L (>89) mL/min POC Glucose (68-110) mg/dl Random Glucose 97 (74-106) mg/dL Calcium 9.1 (8.5-10.1) mg/dL Blood Type Blood Type Recheck Antibody Screen Antibody Identification Rout Panel Path Interp Antigen Identification MTS Gel Crossmatch Bld Prod Order Comment 03/16/18 03/17/18 03/17/18 Range/Units 21:48 06:30 06:30 CBC w Diff WBC (4.0-11.0) th/mm3 RBC (4.00-5.30) mil/mm3 Hgb (11.6-15.3) gm/dL Hct (35.0-46.0) % MCV (80.0-100.0) fL MCH (27.0-34.0) pg MCHC (32.0-36.0) % RDW (11.6-17.2) % Plt Count (150-450) th/mm3 MPV (7.0-11.0) fL Neut % (Auto) (16.0-70.0) % Lymph % (Auto) (9.0-44.0) % [place] % (Auto) (0.0-8.0) % Eos % (Auto) (0.0-4.0) % Baso % (Auto) (0.0-2.0) % Neut # (Auto) (1.8-7.7) th/mm3 Lymph # (Auto) (1.0-4.8) th/mm3 [place] # (Auto) (0.0-0.9) th/mm3 Eos # (Auto) (0.0-0.4) th/mm3 Baso # (Auto) (0.0-0.2) th/mm3 WBC Differential Diff Scan Differential Comment Platelet Estimate (Normal) Platelet Morphology (Normal) RBC Morphology (Normal) ESR (0-30) mm/hr Sodium (136-145) meq/L Potassium (3.5-5.1) meq/L Chloride (98-107) meq/L Carbon Dioxide (21.0-32.0) meq/L Anion Gap (5-15) meq/L BUN (7-18) mg/dL Creatinine (0.50-1.00) mg/dL Estimated GFR (>89) mL/min POC Glucose 107 (68-110) mg/dl Random Glucose (74-106) mg/dL Calcium (8.5-10.1) mg/dL Blood Type O Positive Blood Type Recheck Required Antibody Screen Positive H Antibody Identification Anti-K Rout Panel Path Interp Antigen Identification K Antigen - NEGATIVE MTS Gel Crossmatch See Detail Bld Prod Order Comment 03/17/18 03/17/18 03/18/18 Range/Units 15:40 21:33 07:10 CBC w Diff Slide review pending WBC 9.3 (4.0-11.0) th/mm3 RBC 4.15 (4.00-5.30) mil/mm3 Hgb 12.0 (11.6-15.3) gm/dL Hct 37.4 (35.0-46.0) % MCV 90.2 (80.0-100.0) fL MCH 28.9 (27.0-34.0) pg MCHC 32.1 (32.0-36.0) % RDW 15.3 (11.6-17.2) % Plt Count 28 L D (150-450) th/mm3 MPV 11.3 H (7.0-11.0) fL Neut % (Auto) 78.6 H (16.0-70.0) % Lymph % (Auto) 18.9 (9.0-44.0) % [place] % (Auto) 1.8 (0.0-8.0) % Eos % (Auto) 0.0 (0.0-4.0) % Baso % (Auto) 0.7 (0.0-2.0) % Neut # (Auto) 7.2 (1.8-7.7) th/mm3 Lymph # (Auto) 1.8 (1.0-4.8) th/mm3 [place] # (Auto) 0.2 (0.0-0.9) th/mm3 Eos # (Auto) 0.0 (0.0-0.4) th/mm3 Baso # (Auto) 0.1 (0.0-0.2) th/mm3 WBC Differential . Diff Scan Auto diff confirmed Differential Comment . Platelet Estimate Low L (Normal) Platelet Morphology Enlarged H (Normal) RBC Morphology (Normal) ESR (0-30) mm/hr Sodium (136-145) meq/L Potassium (3.5-5.1) meq/L Chloride (98-107) meq/L Carbon Dioxide (21.0-32.0) meq/L Anion Gap (5-15) meq/L BUN (7-18) mg/dL Creatinine (0.50-1.00) mg/dL Estimated GFR (>89) mL/min POC Glucose 75 140 H (68-110) mg/dl Random Glucose (74-106) mg/dL Calcium (8.5-10.1) mg/dL Blood Type Blood Type Recheck Antibody Screen Antibody Identification Rout Panel Path Interp Antigen Identification MTS Gel Crossmatch Bld Prod Order Comment 03/18/18 03/18/18 03/18/18 Range/Units 07:10 07:26 18:26 CBC w Diff WBC (4.0-11.0) th/mm3 RBC (4.00-5.30) mil/mm3 Hgb (11.6-15.3) gm/dL Hct (35.0-46.0) % MCV (80.0-100.0) fL MCH (27.0-34.0) pg MCHC (32.0-36.0) % RDW (11.6-17.2) % Plt Count (150-450) th/mm3 MPV (7.0-11.0) fL Neut % (Auto) (16.0-70.0) % Lymph % (Auto) (9.0-44.0) % [place] % (Auto) (0.0-8.0) % Eos % (Auto) (0.0-4.0) % Baso % (Auto) (0.0-2.0) % Neut # (Auto) (1.8-7.7) th/mm3 Lymph # (Auto) (1.0-4.8) th/mm3 [place] # (Auto) (0.0-0.9) th/mm3 Eos # (Auto) (0.0-0.4) th/mm3 Baso # (Auto) (0.0-0.2) th/mm3 WBC Differential Diff Scan Differential Comment Platelet Estimate (Normal) Platelet Morphology (Normal) RBC Morphology (Normal) ESR (0-30) mm/hr Sodium 139 (136-145) meq/L Potassium 4.5 (3.5-5.1) meq/L Chloride 104 (98-107) meq/L Carbon Dioxide 29.5 (21.0-32.0) meq/L Anion Gap 6 (5-15) meq/L BUN 12 (7-18) mg/dL Creatinine 0.67 (0.50-1.00) mg/dL Estimated GFR Greater than 89 (>89) mL/min POC Glucose 157 H 168 H (68-110) mg/dl Random Glucose 152 H (74-106) mg/dL Calcium 9.5 (8.5-10.1) mg/dL Blood Type Blood Type Recheck Antibody Screen Antibody Identification Rout Panel Path Interp Antigen Identification MTS Gel Crossmatch Bld Prod Order Comment 03/18/18 03/18/18 03/19/18 Range/Units 20:42 22:52 06:29 CBC w Diff Slide review pending WBC 12.3 H (4.0-11.0) th/mm3 RBC 3.99 L (4.00-5.30) mil/mm3 Hgb 11.8 (11.6-15.3) gm/dL Hct 35.6 (35.0-46.0) % MCV 89.1 (80.0-100.0) fL MCH 29.5 (27.0-34.0) pg MCHC 33.1 (32.0-36.0) % RDW 15.5 (11.6-17.2) % Plt Count 35 L (150-450) th/mm3 MPV (7.0-11.0) fL Neut % (Auto) 62.3 (16.0-70.0) % Lymph % (Auto) 32.2 (9.0-44.0) % [place] % (Auto) 4.9 (0.0-8.0) % Eos % (Auto) 0.1 (0.0-4.0) % Baso % (Auto) 0.5 (0.0-2.0) % Neut # (Auto) 7.7 (1.8-7.7) th/mm3 Lymph # (Auto) 3.9 (1.0-4.8) th/mm3 [place] # (Auto) 0.6 (0.0-0.9) th/mm3 Eos # (Auto) 0.0 (0.0-0.4) th/mm3 Baso # (Auto) 0.1 (0.0-0.2) th/mm3 WBC Differential . Diff Scan Auto diff confirmed Differential Comment . Platelet Estimate Low L (Normal) Platelet Morphology Enlarged H (Normal) RBC Morphology (Normal) ESR (0-30) mm/hr Sodium (136-145) meq/L Potassium (3.5-5.1) meq/L Chloride (98-107) meq/L Carbon Dioxide (21.0-32.0) meq/L Anion Gap (5-15) meq/L BUN (7-18) mg/dL Creatinine (0.50-1.00) mg/dL Estimated GFR (>89) mL/min POC Glucose 222 H 169 H (68-110) mg/dl Random Glucose (74-106) mg/dL Calcium (8.5-10.1) mg/dL Blood Type Blood Type Recheck Antibody Screen Antibody Identification Rout Panel Path Interp Antigen Identification MTS Gel Crossmatch Bld Prod Order Comment 03/19/18 03/19/18 03/19/18 Range/Units 08:06 14:03 17:12 CBC w Diff WBC (4.0-11.0) th/mm3 RBC (4.00-5.30) mil/mm3 Hgb (11.6-15.3) gm/dL Hct (35.0-46.0) % MCV (80.0-100.0) fL MCH (27.0-34.0) pg MCHC (32.0-36.0) % RDW (11.6-17.2) % Plt Count (150-450) th/mm3 MPV (7.0-11.0) fL Neut % (Auto) (16.0-70.0) % Lymph % (Auto) (9.0-44.0) % [place] % (Auto) (0.0-8.0) % Eos % (Auto) (0.0-4.0) % Baso % (Auto) (0.0-2.0) % Neut # (Auto) (1.8-7.7) th/mm3 Lymph # (Auto) (1.0-4.8) th/mm3 [place] # (Auto) (0.0-0.9) th/mm3 Eos # (Auto) (0.0-0.4) th/mm3 Baso # (Auto) (0.0-0.2) th/mm3 WBC Differential Diff Scan Differential Comment Platelet Estimate (Normal) Platelet Morphology (Normal) RBC Morphology (Normal) ESR (0-30) mm/hr Sodium (136-145) meq/L Potassium (3.5-5.1) meq/L Chloride (98-107) meq/L Carbon Dioxide (21.0-32.0) meq/L Anion Gap (5-15) meq/L BUN (7-18) mg/dL Creatinine (0.50-1.00) mg/dL Estimated GFR (>89) mL/min POC Glucose 112 H 184 H 159 H (68-110) mg/dl Random Glucose (74-106) mg/dL Calcium (8.5-10.1) mg/dL Blood Type Blood Type Recheck Antibody Screen Antibody Identification Rout Panel Path Interp Antigen Identification MTS Gel Crossmatch Bld Prod Order Comment Imaging Data Radiologist's impression: Head CT 03/16/18 21:27 CONCLUSION: Negative noncontrast head CT. . Discharge Plan Discharge Disposition Patient Disposition: 30 Still Patient Discharge Condition Condition: Stable Discharge Order Discharge Orders: Discharge Order (Routine); Ordered 03/19/18 Ordered By: Fabián Hallman Discharge Details Discharge Comment: dc when cleared by Heme, clarify prednisone dose Physicians Team ED Provider: Dixie Howell Primary Care Provider: Primary Care Blanca Mari Attending Provider: Fabián Hallman Other Providers: Gustavo Lo Status ED Status: Left Department Discharge Information Discharge Date/Time: 03/17/18 02:40
[2018-03-16] MEDS ORDERED: Labetalol HCl Inj 100 MG/20 ML Vial IV.PUSH ONE (21:28)
[2018-03-16 22:00] LABS: Baso # (Auto) 0.1 th/mm3 (0.0-0.2); Baso % (Auto) 1.3 % (0.0-2.0); Eos # (Auto) 0.1 th/mm3 (0.0-0.4); Eos % (Auto) 1.4 % (0.0-4.0); Hematocrit 38.5 % (35.0-46.0); Hemoglobin 12.5 gm/dL (11.6-15.3); Lymph # (Auto) 3.2 th/mm3 (1.0-4.8); Lymph % (Auto) 34.1 % (9.0-44.0); Mean Corpuscular HGB Conc 32.5 % (32.0-36.0); Mean Corpuscular Hemoglobin 29.2 pg (27.0-34.0); Mean Corpuscular Volume 89.7 fL (80.0-100.0); Mean Platelet Volume 12.1 fL (7.0-11.0); Mono # (Auto) 0.3 th/mm3 (0.0-0.9); Mono % (Auto) 3.6 % (0.0-8.0); Neut # (Auto) 5.6 th/mm3 (1.8-7.7); Neut % (Auto) 59.6 % (16.0-70.0); Red Cell Distribution Width 15.2 % (11.6-17.2); White Blood Count 9.3 th/mm3 (4.0-11.0)
[2018-03-16 22:15] LABS: Calcium 9.1 mg/dL (8.5-10.1)
[2018-03-16 22:16] LABS: Carbon Dioxide 29.2 meq/L (21.0-32.0)
[2018-03-16 22:18] LABS: Platelet Count 17 th/mm3 (150-450)
[2018-03-16 22:26] LABS: Potassium 4.1 meq/L (3.5-5.1)
[2018-03-16 22:31] LABS: RBC Morphology Normal (Normal)
--- NOTE | 2018-03-16 22:57 | CT ---
EXAM DATE: 03/16/2018 10:31 PM EDT AGE/SEX: 52 years / Female INDICATIONS: Right side face and head pain. Bloodshot right eye. CLINICAL DATA: This is the patient's initial encounter. Patient reports that signs and symptoms have been present for 1 day and indicates a pain score of 5/10. MEDICAL/SURGICAL HISTORY: . . RADIATION DOSE: 57.41 CTDI (mGy) [place] [facility] [place]. . TECHNIQUE: CT of the head without contrast. Using automated exposure control and adjustment of the mA and/or kV according to patient size, radiation dose was kept as low as reasonably achievable to ob tain optimal diagnostic quality images. DICOM format image data is available electronically for revi ew and comparison. FINDINGS: Cerebrum: The ventricles are normal for age. No evidence of midline shift, mass lesion, hemorrhage or acute infarction. No extraaxial fluid collections are seen. Posterior Fossa: The cerebellum and brainstem are intact. The 4th ventricle is midline. The cerebe llopontine angle is unremarkable. Extracranial: The visualized portion of the orbits is intact. Skull: The calvaria is intact. No evidence of skull fracture. CONCLUSION: Negative noncontrast head CT. . Electronically signed by: Yash Rascon MD 03/16/2018 10:55 PM EDT
[2018-03-17] MEDS ORDERED: Bisacodyl 10 MG Supp RECTAL PRN (00:25)
--- NOTE | 2018-03-17 08:46 | P.HPIM ---
History of Present Illness Primary Care Physician: No Primary Care Physician History of Present Illness: 52 year old female with history of hereditary thrombocytopenia , HTN, DM, and SLE presenting with a right-sided headache x 2-3 days and right eye erythema since yesterday. She denies any trauma. She was seen in the ED on 03/08 for right mandibular dental abscess and prescribed clindamycin. She states at that time she had pain in her lower right jaw that radiated to her right ear but this headache is different. Presently she does not have a headache but states at its worst she gets sharp pains in the right side of her head that are 7-8/10 on the pain scale. She denies photophobia, phonophobia, nausea, vomiting, or visual disturbances. She was prompted to come in for further evaluation when she noticed yesterday her right eye was very red. She states she has known thrombocytopenia which she follows with Dr. Mittal and was nervous because of her low platelets and possible bleeding. She states she always has sensitive, bleeding gums but denies epistaxis or active bleeding from any other location. She is unsure of her baseline platelets but review of the EMR shows a platelet count of 51 back in September. She states she has required two platelet transfusions since being diagnosed in 2004. She denies chest pain, shortness of breath, abdominal pain, fever, or chills. PMH: hereditary thrombocytopenia, DM, HTN, SLE Surgical hx: hysterectomy, appendectomy, benign tumor removed from mouth Family hx: mother with thrombocytopenia, DM, and SLE; multiple family members with thrombocytopenia Social hx: lives alone, on disability, denies EtOH use, sporadic tobacco use ( goes weeks without smoking), denies recreational drug use - Diagnosis (1) Thrombocytopenia (2) Headache Review of Systems All other systems reviewed negative except as stated in HPI PMFSH - History History Provided By: Patient - Medical History Medical History: Medical History (Last Updated 03/17/18 @ 11:33 by Tracie Coronel MD) History of lupus Diabetes History of benign tumor of lip Hypertension - Surgical History Surgical History: Surgical History (Last Updated 03/17/18 @ 11:33 by Tracie Coronel MD) History of hysterectomy Hx of appendectomy - Family History Family History: Family History (Last Updated 03/17/18 @ 11:33 by Tracie Coronel MD) Other Diabetes Lupus (systemic lupus erythematosus) Thrombocytopenia - Social History I have reviewed the patient's Social History: Yes - Tobacco History Second Hand Smoke Exposure: Yes Tobacco Use In Past 30 Days: Yes Smoking Status: Current some day smoker Tobacco Type: Cigarettes - Alcohol History How Often Do You Have a Drink Containing Alcohol: Never - Substance Use History Substance History: No History of Abuse - Travel History Recent Travel in the [place] Within the Last 8 Weeks: No Recent Travel Out of the Country Within the Last 8 Weeks: No - Immunization History Tetanus Immunization: <5 Years Medications and Allergies Active Medications: Active Medications Al Hydroxide/Mg Hydroxide (Milk Of Magnesia Liq) 30 ml PO Q12H PRN PRN Reason: Mild Constipation Atenolol (Tenormin) 25 mg PO DAILY DA Bisacodyl (Dulcolax Supp) 10 mg RECTAL DAILY PRN PRN Reason: SEVERE CONSITIPATION Clonidine HCl (Catapres) 0.1 mg PO Q6H PRN PRN Reason: SBP>160, DBP>90 Last Admin: 03/17/18 03:03 Dose: 0.1 mg Lactulose (Lactulose Liq) 30 ml PO DAILY PRN PRN Reason: SEVERE CONSITIPATION Metformin HCl (Glucophage) 500 mg PO BID DA Sennosides (Senokot) 17.2 mg PO Q12H PRN PRN Reason: Moderate Constipation Sodium Chloride (Ns Flush) 2 ml IV.FLUSH PRN PRN PRN Reason: FLUSH AFTER USING IV ACCESS Tramadol HCl (Ultram) 50 mg PO Q6H PRN PRN Reason: pain Last Admin: 03/17/18 01:13 Dose: 50 mg Allergies Allergy/AdvReac Type Severity Reaction Status Date / Time Penicillins Allergy Severe Anaphylaxis Verified 03/08/18 10:00 lisinopril Allergy Unknown Swelling Verified 03/08/18 10:00 aspirin AdvReac Severe H/O LOW Verified 03/08/18 10:00 PLATELET COUNT diclofenac AdvReac Severe Bleeding Verified 03/08/18 10:00 etodolac AdvReac Severe Bleeding Verified 03/08/18 10:00 flurbiprofen AdvReac Severe Bleeding Verified 03/08/18 10:00 ibuprofen AdvReac Severe Bleeding Verified 03/08/18 10:00 indomethacin AdvReac Severe Bleeding Verified 03/08/18 10:00 ketoprofen AdvReac Severe Bleeding Verified 03/08/18 10:00 ketorolac AdvReac Severe Bleeding Verified 03/08/18 10:00 naproxen AdvReac Severe Bleeding Verified 03/08/18 10:00 oxaprozin AdvReac Severe Bleeding Verified 03/08/18 10:00 Home Medications Medication Instructions Recorded Confirmed Type atenolol 25 mg PO DAILY 03/08/18 03/16/18 History metformin 500 mg PO BID 03/08/18 03/16/18 History Exam Vital signs: Vital Signs 03/16/18 21:10 03/16/18 21:40 03/16/18 23:25 Temperature 98.8 F Pulse Rate 84 74 Respiratory Rate 22 17 Blood Pressure 215/89 H 161/95 H 179/82 H Pulse Oximetry 97 98 03/17/18 00:26 03/17/18 02:50 03/17/18 04:00 Temperature 96.9 F L 97.1 F L Pulse Rate 74 71 61 Respiratory Rate 16 18 18 Blood Pressure 160/94 H 172/100 H 137/85 Pulse Oximetry 98 97 98 Intake & Output 03/16/18 03/17/18 03/17/18 18:59 06:59 18:59 Intake Total 1160 / 1160 Output Total 480 / 480 Balance 680 / 680 Weight 152.4 kg Intake: Oral 1160 / 1160 Output: Urine 480 / 480 Other: # Voids 2 Date of Last Bowel Movement 03/16/18 Weight On Admission 152.4 kg Narrative: GENERAL: WN, WD morbidly obese female sitting up in chair in [facility]. SKIN: Warm and dry. HEENT: AT/NC. Pupils equal and round. Right subconjunctival hemorrhage. No hyphema. MMM. Few broken teeth. NECK: Supple no tender LAD or JVD. HEART: RRR no m/r/g. LUNGS: CTAB without wheezes or crackles. ABDOMEN: +BS, soft, NT, ND. EXTREMITIES: No LE edema. Calves supple and nontender. NEURO: Awake and alert. PSYCH: Appropriate mood and affect. - Detailed Eye Exam Visual acuity: Visual Acuity Visual Acuity Uncorrected [ 20/30 Bilateral] Visual Acuity Uncorrected [ 20/30 Left] Visual Acuity Uncorrected [ 20/70 Right] Results - Labs CBC & Chem 7: 03/16/18 21:45 03/16/18 21:45 Labs: Short CBC 03/16/18 Range/Units 21:45 WBC 9.3 (4.0-11.0) th/mm3 Hgb 12.5 (11.6-15.3) gm/dL Hct 38.5 (35.0-46.0) % Plt Count 17 L* (150-450) th/mm3 BMP 03/16/18 21:45 Sodium 142 Potassium 4.1 Chloride 107 Carbon Dioxide 29.2 BUN 12 Creatinine 0.94 Calcium 9.1 - Imaging Impressions Head CT 03/16/18 21:27 CONCLUSION: Negative noncontrast head CT. . Caprini VTE Risk Assessment Caprini VTE Risk Assessment: Moderate/High Risk (score >= 2) VTE Pharmacological Exception Reason: Thrombocytopenia (<50) Caprini Risk Assessment Model: Point Value = 1 Point Value = 2 Point Value = 3 Point Value = 5 Age 41-60 Minor surgery BMI > 25 kg/m2 Swollen legs Varicose veins or History of unexplained or recurrent spontaneous Oral contraceptives or hormone replacement Sepsis (< 1 month) Serious lung disease, including pneumonia (< 1 month) Abnormal pulmonary function Acute myocardial infarction Congestive heart failure (< 1 month) History of inflammatory bowel disease Medical patient at bed rest Age 61-74 Arthroscopic surgery Major open surgery (> 45 min) Laparoscopic surgery (> 45 min) Malignancy Confined to bed (> 72 hours) Immobilizing plaster cast Central venous access Age >= 75 History of VTE Family history of VTE Factor V Leiden Prothrombin [id number] Lupus anticoagulant Anticardiolipin antibodies Elevated serum homocysteine Heparin-induced thrombocytopenia Other congenital or acquired thrombophilia Stroke (< 1 month) Elective arthroplasty Hip, pelvis, or leg fracture Acute spinal cord injury (< 1 month) Prophylaxis Regimen: Total Risk Factor Score Risk Level Prophylaxis Regimen 0-1 Low Early ambulation 2 Moderate Order ONE of the following: *Sequential Compression Device (SCD) *Heparin 5000 units SQ BID 3-4 Higher Order ONE of the following medications: *Heparin 5000 units SQ TID *Enoxaparin/Lovenox 40 mg SQ daily (WT < 150 kg, CrCl > 30 mL/min) *Enoxaparin/Lovenox 30 mg SQ daily (WT < 150 kg, CrCl > 10-29 mL/min) *Enoxaparin/Lovenox 30 mg SQ BID (WT < 150 kg, CrCl > 30 mL/min) AND/OR *Sequential Compression Device (SCD) 5 or more Highest Order ONE of the following medications: *Heparin 5000 units SQ TID (Preferred with Epidurals) *Enoxaparin/Lovenox 40 mg SQ daily (WT < 150 kg, CrCl > 30 mL/min) *Enoxaparin/Lovenox 30 mg SQ daily (WT < 150 kg, CrCl > 10-29 mL/min) *Enoxaparin/Lovenox 30 mg SQ BID (WT < 150 kg, CrCl > 30 mL/min) AND *Sequential Compression Device (SCD) Assessment and Plan - Assessment (1) Thrombocytopenia Code(s): D69.6 - Thrombocytopenia, unspecified Status: Acute (2) Headache Code(s): R51 - Headache Status: Acute - Plan 52 year old female with history of hereditary thrombocytopenia , HTN, DM, and SLE presenting with a right-sided headache x 2-3 days, right subconjunctival hemorrhage, and acute on chronic thrombocytopenia. 1. Thrombocytopenia - Last platelet count in the EMR back in September was 51 and platelets down to 17 on admission - Follows with Dr. Abraham - Type and screen with + antibody - Hematology consulted for further eval and to determine need for platelet transfusion 2. Headache - Currently resolved - CT head negative - ESR only mildly elevated - Analgesics PRN 3. Subconjunctival hemorrhage - Likely secondary to underlying thrombocytopenia - Defer ophtho consult since nontraumatic and related to underlying hematologic disorder - Expect to resolve over next couple weeks - Can f/u with ophtho as outpatient 4. SLE - Not on any meds as outpatient 5. HTN - Initially hypertensive on admission but BP has normalized - Continue home atenolol 6. DM - Continue home metformin DVT prophylaxis: chemical anticoagulation C/I given thrombocytopenia Code Status: FULL H&P: Quality - VTE Deep Vein Thrombosis/Pulmonary Embolism Present on Admission: No
[2018-03-17] MEDS: Atenolol 25 MG Tablet PO SCH (09:08)
[2018-03-17] MEDS ORDERED: HYDROmorphone PF Inj 4 MG/ML Ampul IM ONE (10:46)
[2018-03-17] MEDS ORDERED: predniSONE 20 MG Tablet PO ONE (17:33)
--- NOTE | 2018-03-17 19:00 | P.CON ---
History of Present Illness Service: Hematology/oncology. Consult date: 03/17/18 Requesting Physician: Tracie Coronel Reason for Consult: Immune thrombocytopenic purpura (ITP). Primary Care Provider: No Primary Care Physician Chief Complaint: "My platelets are low ". History of Present Illness: Ms. Hannon is a 52-year-old female with a history of chronic immune thrombocytopenic purpura. She had been seeing me in the outpatient hematology clinic since the early part of 2017. Prior to that she had been under the care of Dr. Silviano Conde for many years up until his usp. The patient under the care of Dr. Conde had been on "maintenance" Promacta which is an oral thrombin analog. Her ITP has thus far been treated with corticosteroids, IVIG and Promacta; she has never been challenged with rituximab and has not undergone splenectomy. The patient was maintained on low-dose prednisone after Promacta was discontinued by myself approximately 18 months ago. She tells me she ran out of prednisone about a month ago, since then she has had easy bruising. She came into the [facility] because she noticed bleeding around her right eye. Blood work performed in the emergency department revealed a platelet count of 17, giant platelets were noted on the peripheral smear. She has been admitted to the hospital for monitoring. Corticosteroids have been started by myself tonight. Review of Systems Constitutional: Reports fatigue, Reports lack of energy, Denies anorexia Eyes: Denies change in vision Ears, Nose, Mouth, and Throat: Denies abnormal hearing Cardiovascular: Reports shortness of breath with activity, Denies chest pain, Denies chest pain with activity, Denies fainting, Denies shortness of breath when lying down Respiratory: Reports shortness of breath with activity, Denies change in phlegm color, Denies cough, Denies coughing up blood Gastrointestinal: Denies abdominal pain, Denies black, tarry stools, Denies bright, red blood in stools, Denies change in bowel habits Genitourinary: Denies abnormal vaginal bleeding Musculoskeletal: Denies abnormal walking Skin/Breast: Denies acne, Denies rash Neurologic: Denies abnormal hearing, Denies abnormal speech, Denies frequent falls Psychiatric: Reports anxiety, Denies abnormal sleep pattern Endocrine: Denies cold intolerance Hematologic/Lymphatic: Reports easy bleeding Comments: Easy bruising. Allergic/Immunologic: Denies GI upset with certain foods PMFSH - History History Provided By: Patient - Medical History Medical History: Medical History (Last Updated 03/17/18 @ 18:52 by Castro Abraham MD) History of lupus Immune thrombocytopenic purpura Morbid obesity Obstructive sleep apnea Diabetes History of benign tumor of lip Hypertension - Surgical History Surgical History: Surgical History (Last Reviewed 03/17/18 @ 18:52 by Castro Abraham MD) History of hysterectomy Hx of appendectomy - Family History Family History: Family History (Last Reviewed 03/17/18 @ 18:52 by Castro Abraham MD) Other Diabetes Lupus (systemic lupus erythematosus) Thrombocytopenia - Social History I have reviewed the patient's Social History: Yes - Tobacco History Second Hand Smoke Exposure: Yes Tobacco Use In Past 30 Days: Yes Smoking Status: Current some day smoker Tobacco Type: Cigarettes - Alcohol History How Often Do You Have a Drink Containing Alcohol: Never - Substance Use History Substance History: No History of Abuse - Travel History Recent Travel in the [place] Within the Last 8 Weeks: No Recent Travel Out of the Country Within the Last 8 Weeks: No - Immunization History Tetanus Immunization: <5 Years Medications and Allergies Active Medications: Active Medications Al Hydroxide/Mg Hydroxide (Milk Of Magnesia Liq) 30 ml PO Q12H PRN PRN Reason: Mild Constipation Atenolol (Tenormin) 25 mg PO DAILY [facility] Last Admin: 03/17/18 09:08 Dose: 25 mg Bisacodyl (Dulcolax Supp) 10 mg RECTAL DAILY PRN PRN Reason: SEVERE CONSITIPATION Clindamycin HCl (Cleocin) 300 mg PO Q6HR [facility] Last Admin: 03/17/18 18:35 Dose: 300 mg Clonidine HCl (Catapres) 0.1 mg PO Q6H PRN PRN Reason: SBP>160, DBP>90 Last Admin: 03/17/18 03:03 Dose: 0.1 mg Lactulose (Lactulose Liq) 30 ml PO DAILY PRN PRN Reason: SEVERE CONSITIPATION Metformin HCl (Glucophage) 500 mg PO BID [facility] Last Admin: 03/17/18 09:08 Dose: 500 mg Prednisone (Deltasone) 60 mg PO DAILY [facility] Sennosides (Senokot) 17.2 mg PO Q12H PRN PRN Reason: Moderate Constipation Sodium Chloride (Ns Flush) 2 ml IV.FLUSH PRN PRN PRN Reason: FLUSH AFTER USING IV ACCESS Tramadol HCl (Ultram) 50 mg PO Q6H PRN PRN Reason: pain Last Admin: 03/17/18 15:52 Dose: 50 mg Allergies Allergy/AdvReac Type Severity Reaction Status Date / Time Penicillins Allergy Severe Anaphylaxis Verified 03/08/18 10:00 lisinopril Allergy Unknown Swelling Verified 03/08/18 10:00 aspirin AdvReac Severe H/O LOW Verified 03/08/18 10:00 PLATELET COUNT diclofenac AdvReac Severe Bleeding Verified 03/08/18 10:00 etodolac AdvReac Severe Bleeding Verified 03/08/18 10:00 flurbiprofen AdvReac Severe Bleeding Verified 03/08/18 10:00 ibuprofen AdvReac Severe Bleeding Verified 03/08/18 10:00 indomethacin AdvReac Severe Bleeding Verified 03/08/18 10:00 ketoprofen AdvReac Severe Bleeding Verified 03/08/18 10:00 ketorolac AdvReac Severe Bleeding Verified 03/08/18 10:00 naproxen AdvReac Severe Bleeding Verified 03/08/18 10:00 oxaprozin AdvReac Severe Bleeding Verified 03/08/18 10:00 Home Medications Medication Instructions Recorded Confirmed Type atenolol 25 mg PO DAILY 03/08/18 03/16/18 History metformin 500 mg PO BID 03/08/18 03/16/18 History Physical Exam Vital signs: Vital Signs 03/16/18 21:10 03/16/18 21:40 03/16/18 23:25 Temperature 98.8 F Pulse Rate 84 74 Respiratory Rate 22 17 Blood Pressure 215/89 H 161/95 H 179/82 H Pulse Oximetry 97 98 03/17/18 00:26 03/17/18 02:50 03/17/18 04:00 Temperature 96.9 F L 97.1 F L Pulse Rate 74 71 61 Respiratory Rate 16 18 18 Blood Pressure 160/94 H 172/100 H 137/85 Pulse Oximetry 98 97 98 03/17/18 08:00 03/17/18 12:00 Temperature 96.4 F L 98.2 F Pulse Rate 68 74 Respiratory Rate 20 20 Blood Pressure 120/77 138/93 H Pulse Oximetry 96 Intake & Output 03/16/18 03/17/18 03/17/18 18:59 06:59 18:59 Intake Total 1160 / 1160 Output Total 480 / 480 Balance 680 / 680 Weight 152.4 kg Intake: Oral 1160 / 1160 Output: Urine 480 / 480 Other: # Voids 2 Date of Last Bowel Movement 03/16/18 Weight On Admission 152.4 kg - Routine HEENT Exam Head: Absent: normocephalic Eye: Present: EOMI, PERRL ENT: Present: mucous membranes moist - Detailed Eye Exam Eyelids: Bilateral normal inspection Pupils: Bilateral regular, round Sclerae/Conjunctivae: Right hemorrhage, Bilateral normal inspection Visual acuity: Visual Acuity Visual Acuity Uncorrected [ 20/30 Bilateral] Visual Acuity Uncorrected [ 20/30 Left] Visual Acuity Uncorrected [ 20/70 Right] - Routine Neck Exam Present: supple, full ROM. Absent: JVD, carotid bruit, normal carotid upstroke , lymphadenopathy - Routine Respiratory Exam Present: CTA bilaterally. Absent: accessory muscle use, prolonged expiratory phase, rales, respiratory distress, rhonchi, stridor, wheezes - Routine Cardiovascular Exam Present: RRR, S1, S2. Absent: murmur, gallop, rubs, S3, S4 - Routine Abdominal Exam Present: soft. Absent: tenderness, guarding, firm, rigid Comments: Exam limited by morbid obesity. - Routine Extremities Exam Absent: cyanosis - Routine Skin Exam Absent: intact - Routine Neurological Exam Present: alert, oriented X3, CN II-XII intact. Absent: sensory deficit, motor deficit, normal reflexes - Detailed Neurological Exam: Coma Scale Eye Opening: Spontaneous Verbal Response: Oriented Motor Response: Obey commands Anaid Coma Scale Total: 15 - Routine Psychiatric Exam Present: normal affect Assessment and Plan - Plan Ms. Hannon is a 52-year-old female with a long-standing history of immune thrombocytopenic purpura (ITP), reported history of systemic lupus erythematosus , morbid obesity, diabetes, hypertension, osteoarthritis. She has been on long- term low-dose corticosteroids for management of ITP and prior to that had been on low-dose Promacta (thrombopoietin receptor agonist). She was taken off of Promacta about a year and a half ago because this drug is indicated for people who are refractory to corticosteroids, immunoglobulins and splenectomy. She was maintained on low-dose corticosteroids, she tells me she ran out of her prednisone about a month ago. She had not see me in follow-up in about 6 months. Her most recent platelet count was slightly over 50,000. The patient came into the hospital because she noted redness around her right eye, on clinical examination she has a small subconjunctival hemorrhage. Blood work performed at this hospital indicates platelet count of 17,000, peripheral blood indicates giant platelets consistent with her diagnosis of ITP. Recommendations: 1. Chronic ITP with exacerbation secondary to discontinuation of immunosuppression. I have resumed corticosteroids with prednisone 40 mg x1 now followed by 60 mg p.o. daily starting the morning of 03/18/2018. I continue to advocate corticosteroid sparing therapy for this patient. I have explained to her that typically treatment for her ITP starts with first-line corticosteroids, second line splenectomy followed by third line rituximab. I have explained to her that thrombopoietin receptor agonists such as Promacta are reserved for individuals who have refractory disease. Per the FDA Promacta is indicated only for those individuals who are refractory to the above-noted treatments. She remains resistant about receiving rituximab, she declines splenectomy. Repeat CBC in the morning. Platelet transfusion not indicated at this time. IVIG not indicated at this time either. Should her platelet counts declined further she may benefit from IVIG infusion. I have encouraged her to resume outpatient follow-up with me with routine monitoring. Hematology service to follow along with you.
[2018-03-18 07:41] LABS: Baso # (Auto) 0.1 th/mm3 (0.0-0.2); Baso % (Auto) 0.7 % (0.0-2.0); Hematocrit 37.4 % (35.0-46.0); Lymph # (Auto) 1.8 th/mm3 (1.0-4.8); Lymph % (Auto) 18.9 % (9.0-44.0); Mean Corpuscular HGB Conc 32.1 % (32.0-36.0); Mean Corpuscular Hemoglobin 28.9 pg (27.0-34.0); Mean Corpuscular Volume 90.2 fL (80.0-100.0); Mean Platelet Volume 11.3 fL (7.0-11.0); Mono # (Auto) 0.2 th/mm3 (0.0-0.9); Mono % (Auto) 1.8 % (0.0-8.0); Neut # (Auto) 7.2 th/mm3 (1.8-7.7); Neut % (Auto) 78.6 % (16.0-70.0); Platelet Count 28 th/mm3 (150-450); Red Blood Count 4.15 mil/mm3 (4.00-5.30); Red Cell Distribution Width 15.3 % (11.6-17.2); White Blood Count 9.3 th/mm3 (4.0-11.0)
[2018-03-18 07:49] LABS: Chloride 104 meq/L (98-107); Potassium 4.5 meq/L (3.5-5.1); Sodium 139 meq/L (136-145)
[2018-03-18 07:54] LABS: Anion Gap 6 meq/L (5-15); Blood Urea Nitrogen 12 mg/dL (7-18); Calcium 9.5 mg/dL (8.5-10.1); Carbon Dioxide 29.5 meq/L (21.0-32.0); Glucose,Random 152 mg/dL (74-106)
[2018-03-18 07:58] LABS: Glomerular Filtration Rate Greater Than 89 mL/min (>89)
[2018-03-18] MEDS: Atenolol 25 MG Tablet PO SCH (09:17)
[2018-03-18] MEDS: predniSONE 20 MG Tablet PO SCH (09:17)
--- NOTE | 2018-03-18 11:47 | P.PNIM ---
Subjective Interval history: Pt seen and examined. Denies CP, GARCIA, SOB, abdominal pain, N/V. Tolerating PO. Ambulating. No spontaneous bleeding from any site. Physical Exam Vital signs: Vital Signs 03/17/18 12:00 03/17/18 16:00 03/18/18 00:00 Temperature 98.2 F 97.3 F L 96.5 F L Pulse Rate 74 72 77 Respiratory Rate 20 20 18 Blood Pressure 138/93 H 145/91 H 136/77 Pulse Oximetry 96 97 94 L 03/18/18 00:40 03/18/18 08:00 Temperature 97.0 F L 97.9 F Pulse Rate 67 68 Respiratory Rate 18 19 Blood Pressure 127/75 185/98 H Pulse Oximetry 98 97 Intake & Output 03/17/18 03/18/18 03/18/18 18:59 06:59 18:59 Intake Total 1162 / 1162 1200 / 1200 240 / 240 Output Total 400 / 400 Balance 1162 / 1162 1200 / 1200 -160 / -160 Weight 152.4 kg Intake: Oral 1162 / 1162 1200 / 1200 240 / 240 Output: Urine 400 / 400 Other: # Voids 5 3 Date of Last Bowel Movement 03/18/18 # Bowel Movements 1 Narrative: GENERAL: WN, WD morbidly obese female sitting up in chair in [facility]. SKIN: Warm and dry. HEENT: AT/NC. Pupils equal and round. Right subconjunctival hemorrhage. No hyphema. HEART: RRR no m/r/g. LUNGS: CTAB without wheezes or crackles. ABDOMEN: +BS, soft, NT, ND. EXTREMITIES: No LE edema. Calves supple and nontender. NEURO: Awake and alert. - Detailed Eye Exam Visual acuity: Visual Acuity Visual Acuity Uncorrected [ 20/30 Bilateral] Visual Acuity Uncorrected [ 20/30 Left] Visual Acuity Uncorrected [ 20/70 Right] Results - Labs CBC & Chem 7: 03/18/18 07:10 03/18/18 07:10 Laboratory Results - last 24 hr 03/17/18 03/17/18 03/18/18 15:40 21:33 07:10 CBC w Diff Slide review pending WBC 9.3 RBC 4.15 Hgb 12.0 Hct 37.4 MCV 90.2 MCH 28.9 MCHC 32.1 RDW 15.3 Plt Count 28 L D MPV 11.3 H Neut % (Auto) 78.6 H Lymph % (Auto) 18.9 [place] % (Auto) 1.8 Eos % (Auto) 0.0 Baso % (Auto) 0.7 Neut # (Auto) 7.2 Lymph # (Auto) 1.8 [place] # (Auto) 0.2 Eos # (Auto) 0.0 Baso # (Auto) 0.1 WBC Differential . Diff Scan Auto diff confirmed Differential Comment . Platelet Estimate Low L Platelet Morphology Enlarged H Sodium Potassium Chloride Carbon Dioxide Anion Gap BUN Creatinine Estimated GFR POC Glucose 75 140 H Random Glucose Calcium 03/18/18 03/18/18 07:10 07:26 CBC w Diff WBC RBC Hgb Hct MCV MCH MCHC RDW Plt Count MPV Neut % (Auto) Lymph % (Auto) [place] % (Auto) Eos % (Auto) Baso % (Auto) Neut # (Auto) Lymph # (Auto) [place] # (Auto) Eos # (Auto) Baso # (Auto) WBC Differential Diff Scan Differential Comment Platelet Estimate Platelet Morphology Sodium 139 Potassium 4.5 Chloride 104 Carbon Dioxide 29.5 Anion Gap 6 BUN 12 Creatinine 0.67 Estimated GFR Greater than 89 POC Glucose 157 H Random Glucose 152 H Calcium 9.5 Assessment and Plan - Assessment (1) Idiopathic thrombocytopenia purpura Code(s): D69.3 - Immune thrombocytopenic purpura Status: Acute (2) Headache Code(s): R51 - Headache Status: Resolved - Plan 52 year old female with history of ITP, HTN, DM, and SLE presenting with a right-sided headache x 2-3 days, right subconjunctival hemorrhage, and acute on chronic thrombocytopenia. 1. ITP exacerbation - Last platelet count in the EMR back in September was 51 and platelets down to 17 on admission - Follows with Dr. Abraham who was consulted and started patient on prednisone - Platelets up to 28 today - Continue to monitor 2. Headache - resolved - CT head negative - ESR only mildly elevated - Analgesics PRN 3. Subconjunctival hemorrhage - Likely secondary to underlying thrombocytopenia - Defer ophtho consult since nontraumatic and related to underlying hematologic disorder - Expect to resolve over next couple weeks - Can f/u with ophtho as outpatient 4. SLE - Not on any meds as outpatient 5. HTN - Initially hypertensive on admission but BP has normalized - Continue home atenolol 6. DM - Continue home metformin DVT prophylaxis: chemical anticoagulation C/I given thrombocytopenia Discharge Planning: Once cleared by heme
--- NOTE | 2018-03-18 19:22 | P.PNONC ---
Subjective Interval history: "I got mad at him for stopping my Promacta." Objective Vital Signs/Intake & Output: Vital Signs 03/18/18 00:00 03/18/18 00:40 03/18/18 08:00 Temperature 96.5 F L 97.0 F L 97.9 F Pulse Rate 77 67 68 Respiratory Rate 18 18 19 Blood Pressure 136/77 127/75 185/98 H Pulse Oximetry 94 L 98 97 03/18/18 12:00 03/18/18 16:00 Temperature 98.7 F 97.4 F L Pulse Rate 80 Respiratory Rate 20 21 Blood Pressure 175/90 H Pulse Oximetry 98 96 Intake & Output 03/18/18 03/18/18 03/19/18 06:59 18:59 06:59 Intake Total 1200 / 1200 1260 / 1260 Output Total 801 / 801 Balance 1200 / 1200 459 / 459 Weight 152.4 kg Intake: Oral 1200 / 1200 960 / 960 Other 300 / 300 Output: Urine 800 / 800 Stool / Other: # Voids 3 Date of Last Bowel Movement 03/18/18 Result Diagrams: 03/18/18 07:10 03/18/18 07:10 Laboratory Results: Laboratory Results - last 24 hr 03/17/18 03/18/18 03/18/18 21:33 07:10 07:10 CBC w Diff Slide review pending WBC 9.3 RBC 4.15 Hgb 12.0 Hct 37.4 MCV 90.2 MCH 28.9 MCHC 32.1 RDW 15.3 Plt Count 28 L D MPV 11.3 H Neut % (Auto) 78.6 H Lymph % (Auto) 18.9 [place] % (Auto) 1.8 Eos % (Auto) 0.0 Baso % (Auto) 0.7 Neut # (Auto) 7.2 Lymph # (Auto) 1.8 [place] # (Auto) 0.2 Eos # (Auto) 0.0 Baso # (Auto) 0.1 WBC Differential . Diff Scan Auto diff confirmed Differential Comment . Platelet Estimate Low L Platelet Morphology Enlarged H Sodium 139 Potassium 4.5 Chloride 104 Carbon Dioxide 29.5 Anion Gap 6 BUN 12 Creatinine 0.67 Estimated GFR Greater than 89 POC Glucose 140 H Random Glucose 152 H Calcium 9.5 03/18/18 03/18/18 07:26 18:26 CBC w Diff WBC RBC Hgb Hct MCV MCH MCHC RDW Plt Count MPV Neut % (Auto) Lymph % (Auto) [place] % (Auto) Eos % (Auto) Baso % (Auto) Neut # (Auto) Lymph # (Auto) [place] # (Auto) Eos # (Auto) Baso # (Auto) WBC Differential Diff Scan Differential Comment Platelet Estimate Platelet Morphology Sodium Potassium Chloride Carbon Dioxide Anion Gap BUN Creatinine Estimated GFR POC Glucose 157 H 168 H Random Glucose Calcium Medications: Active Medications Generic Name Dose Route Start Last Admin Trade Name Freq PRN Reason Stop Dose Admin Atenolol 25 mg 03/17/18 09:00 03/18/18 09:17 Tenormin PO 25 mg DAILY DA Administration Clindamycin HCl 300 mg 03/17/18 12:00 03/18/18 18:27 Cleocin PO 300 mg Q6HR DA Administration Clonidine HCl 0.1 mg 03/17/18 00:38 03/18/18 16:24 Catapres PO 0.1 mg Q6H PRN Administration SBP>160, DBP>90 Lactulose 30 ml 03/17/18 00:25 03/18/18 16:22 Lactulose Liq PO 30 ml DAILY PRN Administration SEVERE CONSITIPATION Metformin HCl 500 mg 03/17/18 09:00 03/18/18 09:16 Glucophage PO 500 mg BID DA Administration Prednisone 60 mg 03/18/18 09:00 03/18/18 09:17 Deltasone PO 60 mg DAILY DA Administration Tramadol HCl 50 mg 03/17/18 00:35 03/18/18 16:23 Ultram PO 50 mg Q6H PRN Administration pain Objective Remarks: GENERAL: Obese middle-aged woman well-developed patient. SKIN: Warm and dry. HEAD: Normocephalic. EYES: No scleral icterus. No injection or drainage. NECK: Supple, trachea midline. No JVD or lymphadenopathy. LYMPHATIC: No adenopathy. CARDIOVASCULAR: Regular rate and rhythm without murmurs. RESPIRATORY: Breath sounds equal bilaterally. No accessory muscle use. GASTROINTESTINAL: Abdomen soft, large mildly distended. EXTREMITIES: No cyanosis, or edema. MUSCULOSKELETAL: Adequate muscle tone. NEUROLOGICAL: No obvious focal deficit. Awake, alert, and oriented x3. PSYCHIATRIC: Appropriate mood and affect; insight and judgment normal. Assessment/Plan (1) Idiopathic thrombocytopenia purpura Code(s): D69.3 - Immune thrombocytopenic purpura Status: Acute - Plan 52-year-old woman with history of systemic lupus and chronic immune thrombocytopenic purpura. She was stable on Promacta and was offered treatment with rituximab which she refused. 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 We discussed the risk and benefit and rationale for Rituxan. Rituxan was considered a chemotherapy which frightened her. She also experiences other benefits of being on prednisone such as relief of her arthritis from the lupus which is the reason why she prefers to be on prednisone. We discussed at length the risk and benefit of prednisone. We discussed that prednisone is not the best therapy for chronic ITP especially in someone who has diabetes. However it is effective for acute exacerbations such as this. She is responding to prednisone with her platelet count trending up. She denies any bleeding. She has since reconciled with her strip mine supervisor and plans to follow-up with him upon discharge. I anticipate her discharge tomorrow with follow-up with Dr. Abraham early next week.
--- NOTE | 2018-03-18 21:42 | P.PN ---
Subjective Interval history: NOT seen Physical Exam Vital signs: Vital Signs 03/18/18 00:00 03/18/18 00:40 03/18/18 08:00 Temperature 96.5 F L 97.0 F L 97.9 F Pulse Rate 77 67 68 Respiratory Rate 18 18 19 Blood Pressure 136/77 127/75 185/98 H Pulse Oximetry 94 L 98 97 03/18/18 12:00 03/18/18 16:00 03/18/18 20:00 Temperature 98.7 F 97.4 F L 97.7 F Pulse Rate 80 77 Respiratory Rate 20 21 18 Blood Pressure 175/90 H 151/93 H Pulse Oximetry 98 96 96 Intake & Output 03/18/18 03/18/18 03/19/18 06:59 18:59 06:59 Intake Total 1200 / 1200 1260 / 1260 Output Total 801 / 801 Balance 1200 / 1200 459 / 459 Weight 152.4 kg Intake: Oral 1200 / 1200 960 / 960 Other 300 / 300 Output: Urine 800 / 800 Stool Other: # Voids 3 Date of Last Bowel Movement 03/18/18 Narrative: GENERAL: WN, WD morbidly obese female sitting up in chair in NAD. SKIN: Warm and dry. HEART: RRR no m/r/g. LUNGS: CTAB without wheezes or crackles. ABDOMEN: +BS, soft, NT, ND. EXTREMITIES: No LE edema. Calves supple and nontender. NEURO: Awake and alert. - Detailed Eye Exam Visual acuity: Visual Acuity Visual Acuity Uncorrected [ 20/30 Bilateral] Visual Acuity Uncorrected [ 20/30 Left] Visual Acuity Uncorrected [ 20/70 Right] Results - Labs CBC & Chem 7: 03/18/18 07:10 03/18/18 07:10 Laboratory Results - last 24 hr 03/17/18 03/18/18 03/18/18 21:33 07:10 07:10 CBC w Diff Slide review pending WBC 9.3 RBC 4.15 Hgb 12.0 Hct 37.4 MCV 90.2 MCH 28.9 MCHC 32.1 RDW 15.3 Plt Count 28 L D MPV 11.3 H Neut % (Auto) 78.6 H Lymph % (Auto) 18.9 [place] % (Auto) 1.8 Eos % (Auto) 0.0 Baso % (Auto) 0.7 Neut # (Auto) 7.2 Lymph # (Auto) 1.8 [place] # (Auto) 0.2 Eos # (Auto) 0.0 Baso # (Auto) 0.1 WBC Differential . Diff Scan Auto diff confirmed Differential Comment . Platelet Estimate Low L Platelet Morphology Enlarged H Sodium 139 Potassium 4.5 Chloride 104 Carbon Dioxide 29.5 Anion Gap 6 BUN 12 Creatinine 0.67 Estimated GFR Greater than 89 POC Glucose 140 H Random Glucose 152 H Calcium 9.5 03/18/18 03/18/18 03/18/18 07:26 18:26 20:42 CBC w Diff WBC RBC Hgb Hct MCV MCH MCHC RDW Plt Count MPV Neut % (Auto) Lymph % (Auto) [place] % (Auto) Eos % (Auto) Baso % (Auto) Neut # (Auto) Lymph # (Auto) [place] # (Auto) Eos # (Auto) Baso # (Auto) WBC Differential Diff Scan Differential Comment Platelet Estimate Platelet Morphology Sodium Potassium Chloride Carbon Dioxide Anion Gap BUN Creatinine Estimated GFR POC Glucose 157 H 168 H 222 H Random Glucose Calcium - Imaging ITS Impressions Head CT 03/16/18 21:27 CONCLUSION: Negative noncontrast head CT. . - Procedures none Assessment and Plan - Assessment (1) Idiopathic thrombocytopenia purpura Code(s): D69.3 - Immune thrombocytopenic purpura Status: Acute (2) Headache Code(s): R51 - Headache Status: Resolved - Plan 52 year old female with history of ITP, HTN, DM, and SLE presenting with a right-sided headache x 2-3 days, right subconjunctival hemorrhage, and acute on chronic thrombocytopenia. 1. ITP exacerbation - Last platelet count in the EMR back in September was 51 and platelets down to 17 on admission - Follows with Dr. Abraham who was consulted and started patient on prednisone - Platelets up to 28 today - Continue to monitor 2. Headache - resolved - CT head negative - ESR only mildly elevated - Analgesics PRN 3. Subconjunctival hemorrhage - Likely secondary to underlying thrombocytopenia - Defer ophtho consult since nontraumatic and related to underlying hematologic disorder - Expect to resolve over next couple weeks - Can f/u with ophtho as outpatient 4. SLE - Not on any meds as outpatient 5. HTN - Initially hypertensive on admission but BP has normalized - Continue home atenolol 6. DM - Continue home metformin DVT prophylaxis: chemical anticoagulation C/I given thrombocytopenia Discharge Planning: Once cleared by heme
[2018-03-18] MEDS ORDERED: Dextrose 50% in Water 50 ML Vial IV.PUSH PRN (21:43)
[2018-03-19 07:39] LABS: Baso # (Auto) 0.1 th/mm3 (0.0-0.2); Baso % (Auto) 0.5 % (0.0-2.0); Eos % (Auto) 0.1 % (0.0-4.0); Hematocrit 35.6 % (35.0-46.0); Hemoglobin 11.8 gm/dL (11.6-15.3); Lymph # (Auto) 3.9 th/mm3 (1.0-4.8); Lymph % (Auto) 32.2 % (9.0-44.0); Mean Corpuscular HGB Conc 33.1 % (32.0-36.0); Mean Corpuscular Hemoglobin 29.5 pg (27.0-34.0); Mean Corpuscular Volume 89.1 fL (80.0-100.0); Mono # (Auto) 0.6 th/mm3 (0.0-0.9); Mono % (Auto) 4.9 % (0.0-8.0); Neut # (Auto) 7.7 th/mm3 (1.8-7.7); Neut % (Auto) 62.3 % (16.0-70.0); Red Blood Count 3.99 mil/mm3 (4.00-5.30); Red Cell Distribution Width 15.5 % (11.6-17.2); White Blood Count 12.3 th/mm3 (4.0-11.0)
[2018-03-19] MEDS: Insulin NovoLOG Aspart Correctional Sugar Inj SQ SCH ×3 (07:54→17:13)
[2018-03-19] MEDS: predniSONE 20 MG Tablet PO SCH (08:07)
[2018-03-19] MEDS: Atenolol 25 MG Tablet PO SCH (08:07)
[2018-03-19 08:58] LABS: Platelet Count 35 th/mm3 (150-450)
--- NOTE | 2018-03-19 11:51 | P.PN ---
Subjective Interval history: Follow-up ITP. Denies bleeding. BP was elevated this morning because she was eating when it was taken. Repeat blood pressure improved. Physical Exam Vital signs: Vital Signs 03/18/18 12:00 03/18/18 16:00 03/18/18 20:00 Temperature 98.7 F 97.4 F L 97.7 F Pulse Rate 80 77 Respiratory Rate 20 21 18 Blood Pressure 175/90 H 151/93 H Pulse Oximetry 98 96 96 03/19/18 00:00 03/19/18 08:00 Temperature 96.9 F L 98 F Pulse Rate 72 75 Respiratory Rate 18 20 Blood Pressure 151/95 H 139/90 Pulse Oximetry 96 96 Intake & Output 03/18/18 03/19/18 03/19/18 18:59 06:59 18:59 Intake Total 1260 / 1260 1480 / 1480 Output Total 801 / 801 Balance 459 / 459 1480 / 1480 Weight 152.4 kg Intake: Oral 960 / 960 1480 / 1480 Other 300 / 300 Output: Urine 800 / 800 Stool Other: # Voids 3 Date of Last Bowel Movement 03/18/18 03/18/18 Narrative: GENERAL: WN, WD morbidly obese female sitting up in chair in NAD. SKIN: Warm and dry. HEART: RRR no m/r/g. LUNGS: CTAB without wheezes or crackles. ABDOMEN: +BS, soft, NT, ND. EXTREMITIES: No LE edema. Calves supple and nontender. NEURO: Awake and alert. - Detailed Eye Exam Visual acuity: Visual Acuity Visual Acuity Uncorrected [ 20/30 Bilateral] Visual Acuity Uncorrected [ 20/30 Left] Visual Acuity Uncorrected [ 20/70 Right] Results - Labs CBC & Chem 7: 03/19/18 06:29 03/18/18 07:10 Laboratory Results - last 24 hr 03/17/18 03/18/18 03/18/18 06:30 18:26 20:42 CBC w Diff WBC RBC Hgb Hct MCV MCH MCHC RDW Plt Count Neut % (Auto) Lymph % (Auto) [place] % (Auto) Eos % (Auto) Baso % (Auto) Neut # (Auto) Lymph # (Auto) [place] # (Auto) Eos # (Auto) Baso # (Auto) WBC Differential Diff Scan Differential Comment Platelet Estimate Platelet Morphology POC Glucose 168 H 222 H Rout Panel Path Interp 03/18/18 03/19/18 03/19/18 22:52 06:29 08:06 CBC w Diff Slide review pending WBC 12.3 H RBC 3.99 L Hgb 11.8 Hct 35.6 MCV 89.1 MCH 29.5 MCHC 33.1 RDW 15.5 Plt Count 35 L Neut % (Auto) 62.3 Lymph % (Auto) 32.2 [place] % (Auto) 4.9 Eos % (Auto) 0.1 Baso % (Auto) 0.5 Neut # (Auto) 7.7 Lymph # (Auto) 3.9 [place] # (Auto) 0.6 Eos # (Auto) 0.0 Baso # (Auto) 0.1 WBC Differential . Diff Scan Auto diff confirmed Differential Comment . Platelet Estimate Low L Platelet Morphology Enlarged H POC Glucose 169 H 112 H Rout Panel Path Interp - Procedures none Assessment and Plan - Assessment (1) Idiopathic thrombocytopenia purpura Code(s): D69.3 - Immune thrombocytopenic purpura Status: Acute (2) Headache Code(s): R51 - Headache Status: Resolved - Plan 52 year old female with history of ITP, HTN, DM, and SLE presenting with a right-sided headache x 2-3 days, right subconjunctival hemorrhage, and acute on chronic thrombocytopenia. 1. ITP exacerbation - Last platelet count in the EMR back in September was 51 and platelets down to 17 on admission - Follows with Dr. Abraham who was consulted and started patient on prednisone - Platelets up to 35K today - Continue to monitor 2. Headache - resolved - CT head negative - ESR only mildly elevated - Analgesics PRN 3. Subconjunctival hemorrhage - Likely secondary to underlying thrombocytopenia - Defer ophtho consult since nontraumatic and related to underlying hematologic disorder - Expect to resolve over next couple weeks - Can f/u with ophtho as outpatient 4. SLE - Not on any meds as outpatient 5. HTN - Initially hypertensive on admission but BP has normalized - Continue home atenolol 6. DM - Continue home metformin DVT prophylaxis: chemical anticoagulation C/I given thrombocytopenia Discharge Planning: Once cleared by heme
[2018-03-19] MEDS ORDERED: Aluminum/Magnesium/Simethacone Susp 30 ML UDC PO PRN (11:58)
--- NOTE | 2018-03-19 15:19 | P.DS ---
Date of admission: 03/17/18 00:31 Primary care physician: No Primary Care Physician Brief History from admission: 52 year old female with history of hereditary thrombocytopenia , HTN, DM, and SLE presenting with a right-sided headache x 2-3 days and right eye erythema since yesterday. She denies any trauma. She was seen in the ED on 03/08 for right mandibular dental abscess and prescribed clindamycin. She states at that time she had pain in her lower right jaw that radiated to her right ear but this headache is different. Presently she does not have a headache but states at its worst she gets sharp pains in the right side of her head that are 7-8/10 on the pain scale. She denies photophobia, phonophobia, nausea, vomiting, or visual disturbances. She was prompted to come in for further evaluation when she noticed yesterday her right eye was very red. She states she has known thrombocytopenia which she follows with Dr. Mittal and was nervous because of her low platelets and possible bleeding. She states she always has sensitive, bleeding gums but denies epistaxis or active bleeding from any other location. She is unsure of her baseline platelets but review of the EMR shows a platelet count of 51 back in September. She states she has required two platelet transfusions since being diagnosed in 2004. She denies chest pain, shortness of breath, abdominal pain, fever, or chills. PMH: hereditary thrombocytopenia, DM, HTN, SLE Surgical hx: hysterectomy, appendectomy, benign tumor removed from mouth Family hx: mother with thrombocytopenia, DM, and SLE; multiple family members with thrombocytopenia Social hx: lives alone, on disability, denies EtOH use, sporadic tobacco use ( goes weeks without smoking), denies recreational drug use DS: Diagnosis - Discharge Diagnosis (1) Idiopathic thrombocytopenia purpura Status: Acute (2) Headache Status: Resolved DS: Medications - Discharge Medications Prescriptions: metformin [Glucophage] 500 mg PO BID #60 tab prednisone 60 mg PO DAILY #42 tab DS: Summary Hospital Course: 52 year old female with history of ITP, HTN, DM, and SLE presenting with a right-sided headache x 2-3 days, right subconjunctival hemorrhage, and acute on chronic thrombocytopenia. 1. ITP exacerbation - Last platelet count in the EMR back in September was 51 and platelets down to 17 on admission - Dw heme, ct prednisone 60 mg daily until seen in the clinic - Platelets up to 35K today - Continue to monitor 2. Headache - resolved - CT head negative - ESR only mildly elevated - Analgesics PRN 3. Subconjunctival hemorrhage - Likely secondary to underlying thrombocytopenia - Defer ophtho consult since nontraumatic and related to underlying hematologic disorder - Expect to resolve over next couple weeks - Can f/u with ophtho as outpatient 4. SLE - Not on any meds as outpatient 5. HTN - Initially hypertensive on admission but BP has normalized - Continue home atenolol 6. DM - Continue home metformin DVT prophylaxis: chemical anticoagulation C/I given thrombocytopenia - Time Spent with Patient Total time spent providing and/or coordinating discharge services: Greater than 30 minutes - Quality: VTE Deep Vein Thrombosis/Pulmonary Embolism Present on Admission: No Exam Vital signs: Vital Signs 03/18/18 16:00 03/18/18 20:00 03/19/18 00:00 Temperature 97.4 F L 97.7 F 96.9 F L Pulse Rate 80 77 72 Respiratory Rate 21 18 18 Blood Pressure 175/90 H 151/93 H 151/95 H Pulse Oximetry 96 96 96 03/19/18 08:00 03/19/18 11:51 Temperature 98 F 97.5 F L Pulse Rate 75 61 Respiratory Rate 20 20 Blood Pressure 139/90 160/86 H Pulse Oximetry 96 94 L Intake & Output 03/18/18 03/19/18 03/19/18 18:59 06:59 18:59 Intake Total 1260 / 1260 1480 / 1480 Output Total 801 / 801 Balance 459 / 459 1480 / 1480 Weight 152.4 kg Intake: Oral 960 / 960 1480 / 1480 Other 300 / 300 Output: Urine 800 / 800 Stool 1 / Other: # Voids 3 Date of Last Bowel Movement 03/18/18 03/18/18 Narrative: GENERAL: WN, WD morbidly obese female sitting up in chair in NAD. SKIN: Warm and dry. HEART: RRR no m/r/g. LUNGS: CTAB without wheezes or crackles. ABDOMEN: +BS, soft, NT, ND. EXTREMITIES: No LE edema. Calves supple and nontender. NEURO: Awake and alert. - Detailed Eye Exam Visual acuity: Visual Acuity Visual Acuity Uncorrected [ 20/30 Bilateral] Visual Acuity Uncorrected [ 20/30 Left] Visual Acuity Uncorrected [ 20/70 Right] Results Procedures completed during hospitalization: none Labs on day of discharge: Labs from last 24 hours 03/19/18 03/19/18 03/19/18 14:03 08:06 06:29 CBC w Diff Slide review pending WBC 12.3 H RBC 3.99 L Hgb 11.8 Hct 35.6 MCV 89.1 MCH 29.5 MCHC 33.1 RDW 15.5 Plt Count 35 L Neut % (Auto) 62.3 Lymph % (Auto) 32.2 [place] % (Auto) 4.9 Eos % (Auto) 0.1 Baso % (Auto) 0.5 Neut # (Auto) 7.7 Lymph # (Auto) 3.9 [place] # (Auto) 0.6 Eos # (Auto) 0.0 Baso # (Auto) 0.1 WBC Differential . Diff Scan Auto diff confirmed Differential Comment . Platelet Estimate Low L Platelet Morphology Enlarged H POC Glucose 184 H 112 H Rout Panel Path Interp 03/18/18 03/18/18 03/18/18 22:52 20:42 18:26 CBC w Diff WBC RBC Hgb Hct MCV MCH MCHC RDW Plt Count Neut % (Auto) Lymph % (Auto) [place] % (Auto) Eos % (Auto) Baso % (Auto) Neut # (Auto) Lymph # (Auto) [place] # (Auto) Eos # (Auto) Baso # (Auto) WBC Differential Diff Scan Differential Comment Platelet Estimate Platelet Morphology POC Glucose 169 H 222 H 168 H Rout Panel Path Interp 03/17/18 06:30 CBC w Diff WBC RBC Hgb Hct MCV MCH MCHC RDW Plt Count Neut % (Auto) Lymph % (Auto) [place] % (Auto) Eos % (Auto) Baso % (Auto) Neut # (Auto) Lymph # (Auto) [place] # (Auto) Eos # (Auto) Baso # (Auto) WBC Differential Diff Scan Differential Comment Platelet Estimate Platelet Morphology POC Glucose Rout Panel Path Interp - Impressions ITS Impressions Head CT 03/16/18 21:27 CONCLUSION: Negative noncontrast head CT. . Discharge Plan - Discharge Disposition Patient Disposition: 01 Discharge Home - Discharge Condition Condition: Stable - Discharge Order Discharge Orders: Discharge Order (Routine); Ordered 03/19/18 Ordered By: Fabián Villaloboso - Discharge Details Discharge Comment: dc when cleared by Heme, clarify prednisone dose - Physicians Team Primary Care Provider: Primary Care Blanca Mari Attending Provider: Fabián Hallman Other Providers: Gustavo Lo MD
--- NOTE | 2018-03-19 15:22 | P.PNONC ---
Subjective Interval history: Pt doing well. No bleeding. Wants to go home. Objective Vital Signs/Intake & Output: Vital Signs 03/18/18 16:00 03/18/18 20:00 03/19/18 00:00 Temperature 97.4 F L 97.7 F 96.9 F L Pulse Rate 80 77 72 Respiratory Rate 21 18 18 Blood Pressure 175/90 H 151/93 H 151/95 H Pulse Oximetry 96 96 96 03/19/18 08:00 03/19/18 11:51 Temperature 98 F 97.5 F L Pulse Rate 75 61 Respiratory Rate 20 20 Blood Pressure 139/90 160/86 H Pulse Oximetry 96 94 L Intake & Output 03/18/18 03/19/18 03/19/18 18:59 06:59 18:59 Intake Total 1260 / 1260 1480 / 1480 Output Total 801 / 801 Balance 459 / 459 1480 / 1480 Weight 152.4 kg Intake: Oral 960 / 960 1480 / 1480 Other 300 / 300 Output: Urine 800 / 800 Stool Other: # Voids 3 Date of Last Bowel Movement 03/18/18 03/18/18 Obese, in no apparent distress. No oropharyngeal bleeding. Sub conjunctival hge right eye - resolving. No nose / gum bleeds. Abdomen very obese, cannot feel a spleen even if enlarged. Extremities without petechiae. Result Diagrams: 03/19/18 06:29 03/18/18 07:10 Laboratory Results: Laboratory Results - last 24 hr 03/17/18 03/18/18 03/18/18 06:30 18:26 20:42 CBC w Diff WBC RBC Hgb Hct MCV MCH MCHC RDW Plt Count Neut % (Auto) Lymph % (Auto) [place] % (Auto) Eos % (Auto) Baso % (Auto) Neut # (Auto) Lymph # (Auto) [place] # (Auto) Eos # (Auto) Baso # (Auto) WBC Differential Diff Scan Differential Comment Platelet Estimate Platelet Morphology POC Glucose 168 H 222 H Rout Panel Path Interp 03/18/18 03/19/18 03/19/18 22:52 06:29 08:06 CBC w Diff Slide review pending WBC 12.3 H RBC 3.99 L Hgb 11.8 Hct 35.6 MCV 89.1 MCH 29.5 MCHC 33.1 RDW 15.5 Plt Count 35 L Neut % (Auto) 62.3 Lymph % (Auto) 32.2 [place] % (Auto) 4.9 Eos % (Auto) 0.1 Baso % (Auto) 0.5 Neut # (Auto) 7.7 Lymph # (Auto) 3.9 [place] # (Auto) 0.6 Eos # (Auto) 0.0 Baso # (Auto) 0.1 WBC Differential . Diff Scan Auto diff confirmed Differential Comment . Platelet Estimate Low L Platelet Morphology Enlarged H POC Glucose 169 H 112 H Rout Panel Path Interp 03/19/18 14:03 CBC w Diff WBC RBC Hgb Hct MCV MCH MCHC RDW Plt Count Neut % (Auto) Lymph % (Auto) [place] % (Auto) Eos % (Auto) Baso % (Auto) Neut # (Auto) Lymph # (Auto) [place] # (Auto) Eos # (Auto) Baso # (Auto) WBC Differential Diff Scan Differential Comment Platelet Estimate Platelet Morphology POC Glucose 184 H Rout Panel Path Interp Medications: Active Medications Generic Name Dose Route Start Last Admin Trade Name Freq PRN Reason Stop Dose Admin Atenolol 25 mg 03/17/18 09:00 03/19/18 08:07 Tenormin PO 25 mg DAILY DA Administration Calcium Carbonate 500 mg 03/19/18 11:58 03/19/18 14:04 Tums Chew CHEW 500 mg Q6H PRN Administration DYSPEPSIA OR HEARTBURN Clindamycin HCl 300 mg 03/17/18 12:00 03/19/18 14:02 Cleocin PO 03/21/18 23:59 300 mg Q6HR DA Administration Clonidine HCl 0.1 mg 03/17/18 00:38 03/18/18 16:24 Catapres PO 0.1 mg Q6H PRN Administration SBP>160, DBP>90 Insulin Aspart 0 unit 03/19/18 08:00 03/19/18 11:46 Novolog Insulin Correctional Sugar Inj SQ Not Given ACHS DA Protocol Lactulose 30 ml 03/17/18 00:25 03/18/18 16:22 Lactulose Liq PO 30 ml DAILY PRN Administration SEVERE CONSITIPATION Metformin HCl 500 mg 03/17/18 09:00 03/19/18 08:07 Glucophage PO 500 mg BID DA Administration Prednisone 60 mg 03/18/18 09:00 03/19/18 08:07 Deltasone PO 60 mg DAILY DA Administration Tramadol HCl 50 mg 03/17/18 00:35 03/19/18 08:07 Ultram PO 50 mg Q6H PRN Administration pain Objective Remarks: GENERAL: Well-nourished, well-developed patient. SKIN: Warm and dry. HEAD: Normocephalic. EYES: No scleral icterus. No injection or drainage. NECK: Supple, trachea midline. No JVD or lymphadenopathy. LYMPHATIC: No adenopathy. CARDIOVASCULAR: Regular rate and rhythm without murmurs. RESPIRATORY: Breath sounds equal bilaterally. No accessory muscle use. GASTROINTESTINAL: Abdomen soft, non-tender, nondistended. EXTREMITIES: No cyanosis, or edema. MUSCULOSKELETAL: Adequate muscle tone. NEUROLOGICAL: No obvious focal deficit. Awake, alert, and oriented x3. PSYCHIATRIC: Appropriate mood and affect; insight and judgment normal. Assessment/Plan (1) Idiopathic thrombocytopenia purpura Code(s): D69.3 - Immune thrombocytopenic purpura Status: Acute - Plan 52-year-old woman with history of systemic lupus and chronic immune thrombocytopenic purpura. She was stable on Promacta and was offered treatment with rituximab which she refused. She states that she got mad at her plan rep for considering switching her Promacta, that she decided to stop taking all of her therapy. We discussed the risk and benefit and rationale for Rituxan. Rituxan was considered a chemotherapy which frightened her. She also experiences other benefits of being on prednisone such as relief of her arthritis from the lupus which is the reason why she prefers to be on prednisone. We discussed at length the risk and benefit of prednisone. We discussed that prednisone is not the best therapy for chronic ITP especially in someone who has diabetes. However it is effective for acute exacerbations such as this. She is responding to prednisone with her platelet count trending up. She denies any bleeding. She has since reconciled with her plan rep and plans to follow-up with him upon discharge. I anticipate her discharge tomorrow with follow-up with Dr. Abraham early next week. - Attending Statement SLE with ITP - responding to steroids. Bleeding resolving. Reasonable to d/c home with PO Prednisone 1mg/kg and f/u with Dr. Abraham in 1-[address] Hallman.
== END 2018-03-19 17:39 | disposition home or self-care (01) ==
LOC: PHEDA 21:09 → PHED 21:09 → PH3 03-17 02:40
PROVIDERS: ADMIT Internal Medicine; ATTEND Internal Medicine